=== PATIENT | male | born 1940 | race Caucasian/White ===

== ENCOUNTER 2016-08-28 13:24 | Outpatient (RCR) | payer MEDICARE, OTHER ==
[~2016-08-28 13:24] MED LIST: AMARYL 2MG T2 MG/TAB PO; AMOXICILLIN 8751 TAB PO; ANTIVERT 25MG25 MG PO; ASPIRIN 32325 MG/TAB PO; ASPIRIN 81M81 MG/TA2 PO; ATIVAN 0.50.5 MG/TAB PO; BRILINTA90 MG PO; DOXAZOSIN4 MG PO; GLUCOPHAGE XR500 M1 PO; HCTZ 25MG TAB25 MG PO; INDERAL LA120 MG PO; KLOR-CON20 MEQ PO; LASIX 20MG TABL20 MG PO; LIPITOR 40MG TA40 MG PO; LISINOPRIL10 MG PO; MECLIZINE25 MG PO; MYSOLINE 5050 MG/TAB PO; NEXIUM 40MG40 MG PO; PROTONIX 40MG T40 MG PO; ZESTRIL 20MG TA20 MG PO; ZITHROMAX Z PA250 MG PO; ZOCOR 20MG20 MG PO; ZOFRAN4 MG PO
== END 2016-08-30 | disposition home or self-care (01) ==
LOC: COL.CR
DX: Z48.812 Encounter for surgical aftercare following surgery on the circulatory system (principal); Z95.5 Presence of coronary angioplasty implant and graft; I25.10 Atherosclerotic heart disease of native coronary artery without angina pectoris

== ENCOUNTER → 2016-09-09 | Outpatient (CLI) | payer MEDICARE, OTHER | LOC: COL.RAD 07:28 | DX: Z87.891 Personal history of nicotine dependence (principal); I71.4 Abdominal aortic aneurysm, without rupture ==

== ENCOUNTER 2017-05-18 02:38 | Emergency (ER) | payer MEDICARE, OTHER ==
[~2017-05-18] VITALS: Ht 182.9 cm; Wt 102.3 kg
[2017-05-18 02:44] VITALS: BP 187/101; PULSE 84; TEMP 97.6
[2017-05-18 03:10] LABS: BASO % 0.4 % (0.0-2.0); EOS # 0.3 (0.0-0.7); EOS % 2.8 % (0-4.0); GRAN # 6.8 (1.4-6.5); GRAN % 75.2 % (42.2-75.2); HEMATOCRIT 38.3 % (42.0-52.0); HEMOGLOBIN 12.5 g/dl (13.5-18.0); LYMPH # 1.1 (1.2-3.4); MEAN CELL VOLUME 87 fl (80.0-100.0); MEAN CORPUSCULAR HEMOGLOBIN 29 pg (27.0-31.0); MEAN CORPUSCULAR HGB CONC 33 g/dl (33.0-37.0); MEAN PLATELET VOLUME 10.3 fl (7.4-10.4); MONO # 0.8 (0.1-0.6); PLATELET COUNT 181 K/mm3 (130-400); RED BLOOD COUNT 4.39 M/mm3 (4.20-5.60)
[2017-05-18 03:20] LABS: ADJUSTED CALCIUM 9.4 mg/dL (8.4-10.2); ALBUMIN 3.9 gm/dL (3.5-5.0); BILIRUBIN,TOTAL 0.7 mg/dL (0.0-1.0); CALCIUM 9.3 mg/dL (8.4-10.2); CREATININE, serum 1.13 mg/dL (0.66-1.25); POTASSIUM 3.8 mmol/L (3.4-5.0); TOTAL PROTEIN 6.9 gm/dL (6.4-8.2)
[2017-05-18 03:21] LABS: COLLECTION METHOD CLEAN CATCH
[2017-05-18 03:29] LABS: MUCOUS Present /lpf; PH 5 (5-8); SQUAMOUS EPITHELIAL 0-2 /hpf; URINE APPEARANCE Hazy; URINE BACTERIA None Seen /hpf; URINE BILIRUBIN Negative (NEGATIVE); URINE BLOOD 3+ (NEGATIVE); URINE COLOR Yellow; URINE GLUCOSE 2+ (NEGATIVE); URINE KETONE Negative (NEGATIVE); URINE LEUKOCYTE ESTERASE Negative (NEGATIVE); URINE PROTEIN(semi-quant) 1+ (NEGATIVE); URINE RBC >50 /hpf; URINE UROBILINOGEN Negative (NEGATIVE)
[2017-05-18] MEDS ORDERED: NORCO 325 MG-51 TAB PO (03:37)
[2017-05-18] MEDS ORDERED: ZOFRAN ODT4 MG PO (03:37)
[2017-05-18] MEDS ORDERED: FLOMAX 0.40.4 MG/CAP PO (03:37)
[2017-05-20] MEDS ORDERED: CEPHALEXIN500 M1 PO (05:42)
== END 2017-05-18 04:30 | disposition home or self-care (01) ==
LOC: COL.ER 02:38
PROVIDERS: Emergency Medicine
DX: N20.1 Calculus of ureter (principal); I25.10 Atherosclerotic heart disease of native coronary artery without angina pectoris; E11.9 Type 2 diabetes mellitus without complications; I10 Essential (primary) hypertension; K21.9 Gastro-esophageal reflux disease without esophagitis; E78.5 Hyperlipidemia, unspecified; K27.9 Peptic ulcer, site unspecified, unspecified as acute or chronic, without hemorrhage or perforation; F17.220 Nicotine dependence, chewing tobacco, uncomplicated; Z87.442 Personal history of urinary calculi; Z95.5 Presence of coronary angioplasty implant and graft; Z90.49 Acquired absence of other specified parts of digestive tract; Z79.82 Long term (current) use of aspirin; Z79.84 Long term (current) use of oral hypoglycemic drugs
CPT/HCPCS: J1885; J2765; J3010; J7030

== ENCOUNTER 2018-05-11 07:14 | Observation (INO) | payer MEDICARE, OTHER ==
[2018-05-11] VITALS (10 sets, daily range): BP systolic 89–133; BP diastolic 43–73; PULSE 68–91; TEMP 97.8–98.4
[~2018-05-11] VITALS: Ht 182.9 cm; Wt 104.9 kg
[~2018-05-11 07:14] MED LIST changes: +CEPHALEXIN500 M1 PO; +FLOMAX 0.40.4 MG/CAP PO; +NORCO 325 MG-51 TAB PO; +ZOFRAN ODT4 MG PO
[2018-05-11 07:33] LABS: BASO % 0.6 % (0.0-2.0); EOS # 0.3 (0.0-0.7); EOS % 4.1 % (0-4.0); GRAN # 4.6 (1.4-6.5); GRAN % 72.3 % (42.2-75.2); HEMOGLOBIN 12.4 g/dl (13.5-18.0); LYMPH # 0.9 (1.2-3.4); LYMPH % 14.1 % (20.0-51.0); MEAN CELL VOLUME 86 fl (80.0-100.0); MEAN CORPUSCULAR HEMOGLOBIN 28 pg (27.0-31.0); MEAN CORPUSCULAR HGB CONC 33 g/dl (33.0-37.0); MEAN PLATELET VOLUME 10.3 fl (7.4-10.4); MONO # 0.5 (0.1-0.6); MONO % 8.4 % (1.7-9.3); PLATELET COUNT 206 K/mm3 (130-400); RED BLOOD COUNT 4.43 M/mm3 (4.20-5.60); REDCELL DISTRIBUTION WIDTH-CV 12.7 % (11.5-14.5)
[2018-05-11 07:40] LABS: PROTHROMBIN TIME 11.6 SECONDS (9.7-12.8)
[2018-05-11 07:45] LABS: ALANINE AMINOTRANSFERASE 30 U/L (21-72); ALBUMIN 3.7 gm/dL (3.5-5.0); ALKALINE PHOSPHATASE 78 U/L (50-136); ANION GAP 7 mmol/L (7-16); AST,SGOT 18 U/L (15-37); BILIRUBIN,TOTAL 0.4 mg/dL (0.0-1.0); BLOOD UREA NITROGEN 14 mg/dL (9-20); CALCIUM 8.8 mg/dL (8.4-10.2); CARBON DIOXIDE 31 mmol/L (22-30); CHLORIDE 102 mmol/L (98-107); CREATININE, serum 0.84 mg/dL (0.66-1.25); GLUCOSE 209 mg/dL (74-106); POTASSIUM 4.1 mmol/L (3.4-5.0); SODIUM 140 mmol/L (137-145); TOTAL PROTEIN 6.7 gm/dL (6.4-8.2)
[2018-05-11 07:59] LABS: TROPONIN-I < 0.012 ng/mL (0.000-0.034)
[2018-05-11] MEDS ORDERED: SINEMET 10/101 UDTAB PO (08:06)
[2018-05-11] MEDS ORDERED: PLAVIX 75MG TAB75 MG PO (08:07)
[2018-05-11] MEDS ORDERED: LAMISIL250 M1 (08:07)
[2018-05-11 11:27] LABS: TSH w REFLEX 1.33 uIU/mL (0.465-4.680)
[2018-05-12 00:31] VITALS: BP 139/76; PULSE 72; TEMP 98
[2018-05-12 03:59] VITALS: BP 139/78; PULSE 73; TEMP 97.5
[2018-05-12 06:29] LABS: CHOLESTEROL 121 mg/dL (120-200); HDL CHOLESTEROL 20 mg/dL; LDL CHOLESTEROL 36 mg/dL; TRIGLYCERIDE 327 mg/dL
[2018-05-12 06:35] LABS: TROPONIN-I < 0.012 ng/mL (0.000-0.034)
[2018-05-12 09:25] VITALS: BP 162/87; PULSE 92; TEMP 98.6
== END 2018-05-12 12:57 | disposition home or self-care (01) ==
LOC: COL.ER 07:14 → MEDICAL 08:10
PROVIDERS: Family Medicine; Physician Assistant
DX: R07.9 Chest pain, unspecified (principal); R55 Syncope and collapse; D64.9 Anemia, unspecified; N40.0 Benign prostatic hyperplasia without lower urinary tract symptoms; I10 Essential (primary) hypertension; E78.5 Hyperlipidemia, unspecified; K21.9 Gastro-esophageal reflux disease without esophagitis; G20 Parkinson's disease; I25.10 Atherosclerotic heart disease of native coronary artery without angina pectoris; I34.0 Nonrheumatic mitral (valve) insufficiency; Z79.82 Long term (current) use of aspirin; Z79.02 Long term (current) use of antithrombotics/antiplatelets; Z95.5 Presence of coronary angioplasty implant and graft; Z79.84 Long term (current) use of oral hypoglycemic drugs; Z86.73 Personal history of transient ischemic attack (TIA), and cerebral infarction without residual deficits; Z87.891 Personal history of nicotine dependence; Z82.49 Family history of ischemic heart disease and other diseases of the circulatory system
CPT/HCPCS: 99222-AI; 99232-AI; A9502; G0378; J1650; J1815; J2785; J7030

== ENCOUNTER 2019-05-02 12:56 | Inpatient (IN) | payer MEDICARE, OTHER ==
[2019-05-02] VITALS (176 sets, daily range): BP systolic 159–194; BP diastolic 86–89; PULSE 71–77; TEMP 98.5–99.1; O2SAT 84–98
[~2019-05-02] VITALS: Ht 182.9 cm; Wt 97.0 kg
[~2019-05-02 12:56] MED LIST changes: +LAMISIL250 M1; -LIPITOR 40MG TA40 MG PO; +LIPITOR20 MG PO; +NEXIUM 20MG20 MG PO; -NEXIUM 40MG40 MG PO; +PLAVIX 75MG TAB75 MG PO; +SINEMET 10/101 UDTAB PO
[2019-05-02] MEDS ORDERED: JANUVIA 100MG100 MG PO (13:13)
[2019-05-02] MEDS ORDERED: NITROSTAT0.4 MG/TAB SL (13:15)
[2019-05-02] MEDS ORDERED: TOPROL XL100 MG PO (13:17)
[2019-05-02 13:25] LABS: PROTHROMBIN TIME 11.8 SECONDS (9.7-12.8)
[2019-05-02 13:27] LABS: BASO % 0.7 % (0.0-2.0); EOS # 0.3 (0.0-0.7); EOS % 4.7 % (0-4.0); GRAN # 3.5 (1.4-6.5); GRAN % 62.5 % (42.2-75.2); HEMATOCRIT 40.6 % (42.0-52.0); HEMOGLOBIN 13.2 g/dl (13.5-18.0); LYMPH # 1.2 (1.2-3.4); LYMPH % 20.6 % (20.0-51.0); MEAN CELL VOLUME 88 fl (80.0-100.0); MEAN CORPUSCULAR HEMOGLOBIN 29 pg (27.0-31.0); MEAN CORPUSCULAR HGB CONC 33 g/dl (33.0-37.0); MEAN PLATELET VOLUME 10.8 fl (7.4-10.4); MONO # 0.6 (0.1-0.6); MONO % 11.1 % (1.7-9.3); PLATELET COUNT 163 K/mm3 (130-400); REDCELL DISTRIBUTION WIDTH-CV 13.4 % (11.5-14.5)
[2019-05-02 13:28] LABS: ALBUMIN 4.1 gm/dL (3.5-5.0); BILIRUBIN,TOTAL 0.4 mg/dL (0.0-1.0); CALCIUM 9.1 mg/dL (8.4-10.2); CREATININE, serum 0.95 (0.66-1.25); POTASSIUM 4.1 mmol/L (3.4-5.0)
[2019-05-02] MEDS ORDERED: GLUCOPHAGE500 MG/TAB PO (13:30)
--- NOTE | 2019-05-02 18:35 | NUR ---
PT ADMITTED FROM ED WITH CVA. PT TRANSFERED TO BED. ICU MONITORING APPLIED. PT SHOWING SR ON TELE. PT ORIENTED TIMES. BEDSIDE SWALLOW PASSED. PT AND ORIENTED TO ROOM. PT INSTRUCTED TO CALL WTIH ALL NEEDS. WILL CONTINUE TO MONITOR.
--- NOTE | 2019-05-02 20:00 | NUR ---
PT assessed and POC, baseline discussed with . PT occasionally answers questions related to assessment but looked to for answers when discussing Admission B, patient is occasionally salome and refuses to smile for assessment, stated "Don't you guys ever take a break from this night?" Informed patient that the stroke assessment is necessary to do to check that his symptoms do not worsen.
[2019-05-03] VITALS (716 sets, daily range): BP systolic 141–164; BP diastolic 57–99; PULSE 69–90; TEMP 97.8–98.8; O2SAT 75–100
[2019-05-03 05:32] LABS: BASO % 0.8 % (0.0-2.0); EOS # 0.2 (0.0-0.7); EOS % 3.8 % (0-4.0); GRAN # 3.7 (1.4-6.5); GRAN % 68.9 % (42.2-75.2); HEMATOCRIT 34.2 % (42.0-52.0); HEMOGLOBIN 11.1 g/dl (13.5-18.0); LYMPH # 0.8 (1.2-3.4); LYMPH % 15.6 % (20.0-51.0); MEAN CELL VOLUME 88 fl (80.0-100.0); MEAN CORPUSCULAR HEMOGLOBIN 28 pg (27.0-31.0); MEAN CORPUSCULAR HGB CONC 33 g/dl (33.0-37.0); MEAN PLATELET VOLUME 10.6 fl (7.4-10.4); MONO # 0.6 (0.1-0.6); MONO % 10.5 % (1.7-9.3); PLATELET COUNT 142 K/mm3 (130-400); RED BLOOD COUNT 3.91 M/mm3 (4.20-5.60); REDCELL DISTRIBUTION WIDTH-CV 13.5 % (11.5-14.5)
[2019-05-03 05:37] LABS: CALCIUM 8.1 mg/dL (8.4-10.2); CHOLESTEROL RISK RATIO 4.6; CREATININE, serum 0.84 (0.66-1.25); POTASSIUM 3.6 mmol/L (3.4-5.0)
--- NOTE | 2019-05-03 07:10 | NUR ---
Bedside report received on this patient. He is awake and alert and oriented. BP elevated in 170s, he has no complaints. Other VS WNL. Will continue to monitor.
--- NOTE | 2019-05-03 07:30 | NUR ---
Bedside report given to CRISTY Bartlett.
--- NOTE | 2019-05-03 07:45 | NUR ---
Adams Cath placed on this patient. He tolerates well.
--- NOTE | 2019-05-03 08:30 | NUR ---
Patient was eating scrambled eggs for breakfast this AM. He started coughing, choking, and became red in the face. Patient was assisted in clearing his mouth from the scrambled eggs, of which there was a lot. Patient was suctioned with oral yaunker at high suction. Patient heart rate reached up to the 140s during choking episode. He came back down to HR of 80s-90s after he recovers. Dr. Romero called with update at this time. Orders received for Chest XR, ST eval, and NPO. Will continue to monitor
--- NOTE | 2019-05-03 11:00 | NUR ---
LIBERTY EXTERNAL CATHETER ATTEMPTED AND DID NOT STAY ON THE PATIENT'S MEATUS. ATTEMPTED MULTIPLE TIMES AND IT DID NOT STAY IN PLACE. PENIS INCONTINENCE WRAP PLACED AND WORKING BETTER.
--- NOTE | 2019-05-03 14:39 | NUR ---
LAQUITA zurita met with the patient to discuss a discharge plan. The patient lives in [place] with is , Carrie . The patient has a cane, walker, electric wheelchair, and regular wheelchair. The patient reports independence with ADLs. The patient's PCP is Dr. Barrett but will being to see Dr. Barrett's replacement once he retires. The patient receives medications from [facility] with no difficulties. The patient does not have advanced directives in the EMR but reports they are completed. Physical therapy is recommending post acute rehab for the patient. LAQUITA zurita presented Medicare.gov's list of [facility] and Nursing homes. The patient reports he does not care where he goes. Patient would like LAQUITA zurita to contact Carrie to assist with the decision. LAQUITA student attempted to contact Carrie and could not leave voicemail. OIL GAUGERHallie zurita will contact at a later time. printing services coordinator will continue to follow.
--- NOTE | 2019-05-03 17:00 | NUR ---
Patient is currently sitting up in recliner. I notice that he is removing all monitor cords. He is reminded that he needs to keep the CRM in place. He states, "It's 5 o'clock! I gotta get home! My is cooking supper!" I remind the patient of the plan of care and what brought him to the hospital. He verbalizes that he understands then says "Well the right hand and the left hand don't know whats going on!" "I'm in rehab! When are we going to get the show on the road?" I explain to him that he is in the ICU and will go to rehab when the doctor is ready for him to be finished with his hospital stay.
--- NOTE | 2019-05-03 17:30 | NUR ---
, Carrie is here. She is updated on recent confusion that patient has shown me. She states that he has early dementia and can get somewhat aggressive at times. She is updated on plan of care.
--- NOTE | 2019-05-03 18:00 | NUR ---
Patient goes to MRI at this time.
[2019-05-04] VITALS (261 sets, daily range): BP systolic 120–170; BP diastolic 70–90; PULSE 66–74; TEMP 98–98.8; O2SAT 89–100
[2019-05-04 06:06] LABS: BASO % 0.6 % (0.0-2.0); EOS # 0.2 (0.0-0.7); EOS % 4.8 % (0-4.0); GRAN # 3.3 (1.4-6.5); GRAN % 65.9 % (42.2-75.2); HEMOGLOBIN 11.3 g/dl (13.5-18.0); LYMPH # 0.9 (1.2-3.4); LYMPH % 17.9 % (20.0-51.0); MEAN CELL VOLUME 88 fl (80.0-100.0); MEAN CORPUSCULAR HEMOGLOBIN 28 pg (27.0-31.0); MEAN CORPUSCULAR HGB CONC 32 g/dl (33.0-37.0); MEAN PLATELET VOLUME 10.8 fl (7.4-10.4); MONO # 0.5 (0.1-0.6); MONO % 10.4 % (1.7-9.3); PLATELET COUNT 149 K/mm3 (130-400); RED BLOOD COUNT 4.02 M/mm3 (4.20-5.60); REDCELL DISTRIBUTION WIDTH-CV 13.2 % (11.5-14.5)
[2019-05-04 06:12] LABS: CALCIUM 8.5 mg/dL (8.4-10.2); CREATININE, serum 0.81 (0.66-1.25)
[2019-05-04 06:19] LABS: HEMATOCRIT 35.3 % (42.0-52.0)
--- NOTE | 2019-05-04 07:00 | NUR ---
Patient was restless throughout the night, constantly moving from side to side in bed, removing tele patches, and unhooking BP cuff. PT was oriented throughout the night and showed no new stroke defecits. Had about 9-10 incontinent voids requiring brief and linen changes, does not verbalize when he has went or needs to go. Bedside report given to CRISTY Andrews.
--- NOTE | 2019-05-04 07:34 | NUR ---
REPORT RECEIVED FROM ANTONY MUNIZ.
--- NOTE | 2019-05-04 08:12 | NUR ---
PT'S IV TO RIGHT HAND BEGAN LEAKING. IV HAS BECOME DISLODGED AT SOME POINT IN THE LAST FEW MINUTES. IV TO RIGHT HAND REMOVED.
--- NOTE | 2019-05-04 09:00 | NUR ---
22G PERIPHERAL IV INITIATED TO LEFT FOREARM.
--- NOTE | 2019-05-04 09:31 | NUR ---
LAQUITA zurita met with the patient and the patient's to discuss post acute rehab options and present the patient choice form. LAQUITA zurita provided Medicare.gov's list of inpatient rehab and usp facilities. The patient and the patient's first choice is [facility] and second choice is [facility]. The patient's signed the patient choice form then it was placed in the chart. LAQUITA zurita left message for RAJAN Maravilla Director and faxed referral to Xavi at [facility]. financial services counselor will continue to follow.
--- NOTE | 2019-05-04 13:00 | NUR ---
WHILE SITTING AT THE COMPUTER IN THE [place] CHARTING WE HEARD A NOISE FROM PATIENT'S ROOM. UPON ENTERING ROOM PATIENT WAS AT THE FOOT OF HIS BED CROUCHED DOWN, HOLDING ON TO HIS BED TRYING NOT TO FALL. PATIENT HAD SET UP FROM THE RECLINER AND PUSHED IN THE FOOT LIFT, UNHOOKED HIMSELF FROM TELE, AND WAS ATTEMPTING TO WALK TO OTHER SIDE OF THE ROOM. MYSELF AND 3 OTHER NURSE'S RAN INTO ROOM UPON SEEING PATIENT HOLDING HIMSELF UP AND ASSISTED HIM BACK INTO RECLINER CHAIR. PATIENT THEN HELPED BACK INTO BED WHERE BED ALARM WAS TURNED ON. PATIENT HAS BEEN EDUCATED REGARDING SAFETY AND CALL LIGHT. I HAVE CHECKED ON PATIENT SEVERAL TIMES TO ENSURE HE DID NOT HAVE ANY NEEDS. PATIENT HAD REASSURED ME HE WAS FINE AND HE DIDN'T NEED ANYTHING. WHEN I ASKED PATIENT WHY HE HAD GOTTEN UP HE SAID HE JUST WANTED TO GO ON THE OTHER SIDE OF THE ROOM. I REEXPLAINED TO PATIENT THAT HE IS NOT TO GET UP ALONE BECAUSE HE NEARLY FELL AND GOT HURT.
--- NOTE | 2019-05-04 13:44 | NUR ---
REPORT CALLED TO ABDIEL MUNIZ
--- NOTE | 2019-05-04 14:40 | NUR ---
PT TRANSFERRED VIA WHEELCHAIR TO ROOM 311. PHYSICAL THERAPY READY TO WORK WITH PATIENT UPON ENTERING THE ROOM. PATIENT AMBULATED WITH WALKER, GAIT BELT, AND PT TO BED. CONTACT MADE WITH ABDIEL UPON TRANSFER AND LET HER KNOW PT WAS WORKING WITH THE PATIENT. PT'S BELONGINGS TRANSFERRED WITH PATIENT.
--- NOTE | 2019-05-04 14:41 | NUR ---
Xavi from [facility] reports they can accept pending any major changes. services account manager will continue to monitor.
--- NOTE | 2019-05-04 15:00 | NUR ---
Pt to medical unit rm 311 from ICU via WC accompanied by RN. Pt transferred from WC to bed with assist from PT. No needs reported. Call light in reach. Bed alarm on.
--- NOTE | 2019-05-04 18:52 | NUR ---
Report with CRISTY Montoya. Pt resting in bed, ready to get up to bathroom and awaiting supper. No further needs reported. Call light in reach.
--- NOTE | 2019-05-04 21:00 | NUR ---
Patient assessed at this time. Alert and oriented x 4, with intermittent confusion. High fall risk precautions in place. Denies having pain and discomfort. Peripheral IV flushed. Site without redness, warmth, swelling, and pain. Denies SOB and dyspnea. LS CTA. Respirations even and unlabored. HRR. Telemetry in place: NS. Capillary refill less than 3 seconds. Non-tenting skin turgor. BSAx4. Abdomen soft and non-tender. No edema. Redness to groin area. Left sided weakness continues. Two assist due to being unsteady. Voices no questions, needs, or concerns at this time. Resting in bed with call light within reach.
[2019-05-05 00:08] VITALS: BP 159/85; PULSE 75
[2019-05-05 03:55] VITALS: BP 128/78; PULSE 70
--- NOTE | 2019-05-05 05:51 | NUR ---
Patient has been resting in bed with eyes closed most of the night. Neuro checks remain WNL for patient. Call light is within reach.
[2019-05-05 06:42] LABS: BASO % 0.4 % (0.0-2.0); EOS # 0.3 (0.0-0.7); EOS % 5.5 % (0-4.0); GRAN % 66.9 % (42.2-75.2); HEMOGLOBIN 11.5 g/dl (13.5-18.0); LYMPH # 0.7 (1.2-3.4); LYMPH % 14.9 % (20.0-51.0); MEAN CELL VOLUME 87 fl (80.0-100.0); MEAN CORPUSCULAR HEMOGLOBIN 28 pg (27.0-31.0); MEAN CORPUSCULAR HGB CONC 32 g/dl (33.0-37.0); MEAN PLATELET VOLUME 10.7 fl (7.4-10.4); MONO # 0.5 (0.1-0.6); MONO % 11.9 % (1.7-9.3); PLATELET COUNT 147 K/mm3 (130-400); RED BLOOD COUNT 4.08 M/mm3 (4.20-5.60); REDCELL DISTRIBUTION WIDTH-CV 13.3 % (11.5-14.5)
[2019-05-05 06:44] LABS: HEMATOCRIT 35.5 % (42.0-52.0)
--- NOTE | 2019-05-05 07:00 | NUR ---
Bedside shift report received from CRISTY Montoya. pT in bed resting with eyes closed, upon entry awakens and asked to go back to sleep, will leave resting and continue to monitor.
[2019-05-05 07:07] LABS: CALCIUM 8.5 mg/dL (8.4-10.2); CREATININE, serum 0.82 (0.66-1.25); POTASSIUM 3.7 mmol/L (3.4-5.0)
[2019-05-05 07:44] VITALS: BP 166/79; PULSE 65; TEMP 98.3
[2019-05-05] MEDS ORDERED: LIPITOR 40MG TA40 MG PO (09:16)
--- NOTE | 2019-05-05 10:52 | NUR ---
Asssesment charted, pt refuses to smile for neurochecks but all other checks are equal. Pt does not know date but able to tell me month and year, and oriented to place and . Abrasion to L knee and groin is excoriated. Anticipating discharge to [facility] shortly. Melo lcontinue to monitor.
--- NOTE | 2019-05-05 11:32 | NUR ---
Report called to IPR nurse CRISTY Uribe. Pt walking with PT. Belongings sent to new room on IPR with IPR staff. Denies needs, packet given to IPR. INT dc'd, tip intact. Criteria met
--- NOTE | 2019-05-05 13:19 | NUR ---
Despatching And Receiving Clerk was notified by [facility] Director, Renita that they can accept patient today. SW contacted [place] at [facility] to provide update. SW attended rounds with the team and patient to discharge to [facility] today. SW contacted patient's , Carrie (ph#[phone]) to provide update and request that she bring in clothes for patient. No additional concerns at this time.
== END 2019-05-05 11:36 | DRG 62 ==
LOC: COL.ER 12:56 → ICU 16:54 → MEDICAL 05-04 14:51
PROVIDERS: Family Medicine; Physician Assistant; ADMIT Hospitalist
DX: I63.9 Cerebral infarction, unspecified (principal); G81.94 Hemiplegia, unspecified affecting left nondominant side; R47.1 Dysarthria and anarthria; R29.810 Facial weakness; I65.23 Occlusion and stenosis of bilateral carotid arteries; I25.10 Atherosclerotic heart disease of native coronary artery without angina pectoris; I10 Essential (primary) hypertension; E78.5 Hyperlipidemia, unspecified; N40.0 Benign prostatic hyperplasia without lower urinary tract symptoms; E11.9 Type 2 diabetes mellitus without complications; K21.9 Gastro-esophageal reflux disease without esophagitis; R29.705 NIHSS score 5; Z66 Do not resuscitate; F17.200 Nicotine dependence, unspecified, uncomplicated; G20 Parkinson's disease; Z95.5 Presence of coronary angioplasty implant and graft; Z98.42 Cataract extraction status, left eye; Z98.41 Cataract extraction status, right eye; Z87.442 Personal history of urinary calculi; Z86.73 Personal history of transient ischemic attack (TIA), and cerebral infarction without residual deficits; Z90.49 Acquired absence of other specified parts of digestive tract; Z79.02 Long term (current) use of antithrombotics/antiplatelets; Z79.84 Long term (current) use of oral hypoglycemic drugs
CPT/HCPCS: 99223-AI; 99231-AI; 99232-AI; 99239; A9585; J2997; J7030; Q9967

== ENCOUNTER 2019-05-05 09:52 | Inpatient (IN) | payer MEDICARE, OTHER ==
[~2019-05-05] VITALS: Ht 180.3 cm; Wt 95.4 kg
[~2019-05-05 09:52] MED LIST changes: +GLUCOPHAGE500 MG/TAB PO; +JANUVIA 100MG100 MG PO; +LIPITOR 40MG TA40 MG PO; +NITROSTAT0.4 MG/TAB SL; +TOPROL XL100 MG PO
--- NOTE | 2019-05-05 11:30 | NUR ---
Received report from Joyce/RN at [facility] Medical unit. Patient was admitted to Medical unit on 05/02 and was found to have a stroke. He was given TPA was in ICU for a time. He has NKDA, takes pills whole with water. He is alert and oriented, but forgetful. He is a 1-2 person transfer with walker. He is incontinent of urine and bowel. His groin is very excoriated and red. VSS. Joyce removed IV to [facility]. He is on a Carb Controlled/AHA diet. When in the ICU had an episode of chocking when eating some food so ST will be following him when he gets to [facility]. He is impulsive and high fall risk so was placed in room #337 to be better monitored by nursing staff.
[2019-05-05 15:31] VITALS: BP 132/74; PULSE 72; TEMP 98.6
--- NOTE | 2019-05-05 16:00 | NUR ---
Patient was assessed and documents signed. needed to answer many questions as patient did not remember. Discussed using an external catheter to help with skin break down in groin area. Patient and were in agreement will try to do this following his supper this evening. He is currently resting comfortably in his recliner, call light in reach, slip proof socks on and chair alarm on. Will continue to monitor.
[2019-05-05 18:10] VITALS: BP 132/78; PULSE 69; TEMP 97.7
--- NOTE | 2019-05-05 21:08 | NUR ---
When doing patient assessment this nurse found out patient uses scoal daily and has been for about 50 years. Patient would be interested in getting a nicotine patch. Order was filled out. Will have day nurse call and get orders for this patch tomorrow. This was communicated to night nurse.
[2019-05-05 21:49] VITALS: BP 132/78; PULSE 69; TEMP 97.7
[2019-05-06 04:28] VITALS: BP 142/65; PULSE 63; TEMP 97.9
--- NOTE | 2019-05-06 12:45 | NUR ---
stopped by room but nothing needed at this time.
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
[2019-05-06 17:25] VITALS: BP 121/52; PULSE 69; TEMP 98.5
--- NOTE | 2019-05-06 21:41 | NUR ---
Pt doing ok. Was laying in bed this evening. Alert and mostly oriented. Mild confusion noted. Nurse aide did change patient as he was incontinent of bladder. Denies pain. Took PM meds with no issues. Denies needs at this time. Call light within reach, will continue to monitor
[2019-05-07 05:39] VITALS: BP 149/78; PULSE 69; TEMP 97.9
--- NOTE | 2019-05-07 12:50 | NUR ---
RECIEVED ORDER FROM DR SERRANO FOR SCD'D FOR PT'S VTE, THESE WERE PLACED AND EDUCATION GIVEN TO PT.
[2019-05-07 16:56] VITALS: BP 139/73; PULSE 87; TEMP 98.8
--- NOTE | 2019-05-07 18:05 | NUR ---
PT HAS SPENT MOST OF THE DAY IN BED. HE HAS BEEN VERY CONVERSANT WITH STAFF. HE HAD A INCONTINENT STOOL THIS AFTERNOON AND MANAGED TO GET THE STOOL ONLY ON THE BED PAD. THIS SEEMED TO UNEXPECTED IT WAS A LOOSE STOOL. PT HAS CALLED TWICE TO USE THE BR DURING THE DAY. HE GETS UP OUT OF BED WITH ONE ATTEMPT AND USES HIS WALKER WELL. HE DOES LEAN TO THE LEFT AND NEEDS CUEING TO STAND STRAIGHT TO AMBULAE. AT TIMES HE IS UNABLE TO STAND UP STRAIGHT WITH OUT LEANING AND AT OTHER TIMES HE DOES WELL.
--- NOTE | 2019-05-07 20:00 | NUR ---
PT RESTING IN BED. ENC PT TO GO FOR WALK IN [place]. REFUSED. WANTS TO GO TO SLEEP. WEARING BRIEFS FOR BLADDER INCONTINENCE. DENEIS PAIN. HUB ASSOCIATE STRONG BILAT. ORIENTED BUT VERY FORGETFUL. TRMORS NOTED TO BOTH HANDS. CALL LIGHT IN REACH. BED ALARM SET.
[2019-05-08 05:36] VITALS: BP 146/66; PULSE 66; TEMP 97.9
[2019-05-08 09:15] VITALS: BP 184/98; PULSE 79; TEMP 97.7
--- NOTE | 2019-05-08 09:30 | NUR ---
Pt fell while amb to BR with EL Cisneros, this nurse entered room upon hearing the sound from him falling, pt was sitting on the floor with his knees bent to his left side, yellow gripper socks were in place, gait belt and walker were in use, glasses in place. Pt denies pain or injury. Amelia Dasilva, and Richi assisted pt to wheelchair and vitals were taken. Pt's arms trembling. Informed Amelia that she will need to complete an incident report up to my arrival. Oscar FunesRoof Cement And Paint Maker was notified at 0918. Informed GALINA Griffin as well that pt's knees just give out, per GEMA Dasilva.
--- NOTE | 2019-05-08 10:06 | NUR ---
Pt returned from PT, was assisted to the BSC without results, donned new chelsey pad/cone and pulled up brief. Pt assisted to chair, alarm on, call lt in reach. Shoes and glasses in place. Pt denies pain after falling.
[2019-05-08 10:09] VITALS: BP 143/71; PULSE 76
--- NOTE | 2019-05-08 11:08 | NUR ---
Asked Reta, Speech Therapist, and she reports that pt needed to toilet during her session in room with pt, she stepped out of room and pt fell while EL Cisneros was ambulating pt to restroom.
--- NOTE | 2019-05-08 11:43 | NUR ---
SW met with the patient to complete initial intake, as the patient is new to [facility]. The patient lives in [place] with his , Carrie (ph#[phone]). He reports independence with ADLs prior to hospitalization and has a cane, walker, wheelchair, and electric wheelchair. The patient's PCP is Dr. Susanne Rm and he receives his medications at [facility]. He reports no difficulties obtaining his meds. The patient does not have advanced directives in EMR, but he states that he does have them completed. He states that his is his DPOA-HC. SW to continue to follow to ensure a safe discharge.
--- NOTE | 2019-05-08 13:47 | NUR ---
Attempted to give pt lovenox, he refused to receive in abdomen, called pharmacy and Mireya states it may be given in the back of the arm, not in the muscle.
[2019-05-08 15:52] VITALS: BP 113/63; PULSE 91; TEMP 98.8
--- NOTE | 2019-05-08 17:40 | NUR ---
Pt in chair, alarm on, call lt in reach, shoes and glasses in place. Denies pain.
--- NOTE | 2019-05-08 19:55 | NUR ---
Patient resting in bed during shift change reported from day shift nurse. Bed alarm on. No other needs reported.
--- NOTE | 2019-05-08 21:23 | NUR ---
Reported to Dr. Salazar that pt is confused, weak, has incontinence of stools, incontinent of urine frequently, difficult to know what pt's baseline is. Impulsive with fall today, Dr. Salazar aware.
--- NOTE | 2019-05-09 02:03 | NUR ---
Resting quietly in bed, eyes closed, does not arouse when room entered. Bed alarm on.
[2019-05-09 05:22] VITALS: BP 157/75; PULSE 70; TEMP 98.1
[2019-05-09 05:40] LABS: COLLECTION METHOD CATHETER
[2019-05-09 05:50] LABS: MUCOUS Present /lpf; PH 5 (5-8); SQUAMOUS EPITHELIAL 0-2 /hpf; URINE APPEARANCE Hazy; URINE BACTERIA None Seen /hpf; URINE BILIRUBIN Negative (NEGATIVE); URINE BLOOD Negative (NEGATIVE); URINE COLOR Yellow; URINE GLUCOSE Negative (NEGATIVE); URINE KETONE Trace (NEGATIVE); URINE LEUKOCYTE ESTERASE Negative (NEGATIVE); URINE NITRATE Negative (NEGATIVE); URINE PROTEIN(semi-quant) Negative (NEGATIVE); URINE UROBILINOGEN Negative (NEGATIVE)
--- NOTE | 2019-05-09 06:18 | NUR ---
UA COLLECTED PER ST CATH PER DR ORDER, CURRENTLY RESTING QUIETLY WITH EYES CLOSED, DOES NOT AWAKEN WHEN ROOM ENTERED AT THIS TIME. BED ALARM ENGAGED.
--- NOTE | 2019-05-09 07:50 | NUR ---
RESTING IN BED DURING SHIFT CHANGE REPORT GIVEN TO DAY SHIFT NURSE, BED ALARM ENGAGED.
--- NOTE | 2019-05-09 08:38 | NUR ---
Patient resting in bed at this time working with ST. Call light in reach and bed alarm is on. Denies pain or questions at this time.
--- NOTE | 2019-05-09 10:30 | NUR ---
Patient resting in bed at this time, call light in reach and is sleeping at this time. Patient is positioned close to nurse station and alarm is set. He denies pain at this time.
--- NOTE | 2019-05-09 14:41 | NUR ---
WILL contacted the patient's , Carrie, to set up a family meeting. A family meeting was scheduled for tomorrow at [id number]. WILL informed the IPR Director and will continue to follow.
[2019-05-09 15:37] VITALS: BP 123/61; PULSE 87; TEMP 98.1
--- NOTE | 2019-05-09 16:28 | NUR ---
Admission QIM scores were reviewed by the team. Code of 1 chosen for toilet hygiene was determined by team discussion to be the most usual performance before interventions for this patient during the assessment period.--PD Cierra
--- NOTE | 2019-05-09 19:20 | NUR ---
PATIENT PUT TO BED, INCONTINENT PANTS CHANGED, INCONTINENT OF URINE, PERICARE DONE, BED ALARM ENGAGED, DENIES ANY COMPLAINTS OR NEEDS CURRENTLY.
--- NOTE | 2019-05-09 19:22 | NUR ---
INITIALLY UP IN CHAIR DURING SHIFT CHANGE REPORT FROM DAY SHIFT NURSE.
--- NOTE | 2019-05-09 19:51 | NUR ---
Patient attended all therapies today. He is currently resting in bed at this time, call light in reach and bed alarm is on. His stopped by today and was informed of the patient fall yesterday. She said that if staff is unable to get ahold of her to call her son's number . This was communicated to shift supervisor film processing. Patient used his call light appropriatly today and waited for staff to arrive before transferring. Reported off to night nurse.
--- NOTE | 2019-05-10 01:00 | NUR ---
RESTING QUIETLY IN BED, EYES CLOSED, BREATHING NONLABORED & EVEN. DOES NOT AWAKEN WHEN ROOM ENTERED. BED ALARM ON
[2019-05-10 04:30] VITALS: BP 146/89; PULSE 67; TEMP 97.7
--- NOTE | 2019-05-10 04:30 | NUR ---
RESTING IN BED, EYES CLOSED, AWAKENS WITH NAME CALLED, BREATHING EVEN AND NONLABORED. BED ALARM ON. DRINKING OFFERED ORANGE JUICE AT THIS TIME. FSBS CHECKED AT 73
--- NOTE | 2019-05-10 10:16 | NUR ---
SW attended a family meeting with the patient and his , Carrie. Also present was IPR Director, PT, OT, & ST. IPR Director started by explaining the purpose of the meeting. PT/OT/ST then discussed the patient's progress and what they would like to continue to work on with the patient. IPR Director discussed the teams plan of a re-evaluation next Wednesday. The patient and his were in agreeance to this plan. His states that she would just like for the team to keep working on what they discussed. All questions were answered by the team. SW to continue to follow.
--- NOTE | 2019-05-10 10:29 | NUR ---
Patient working with therapy at this time. Tolerated diet well eating 100% of his breakfast. Patient denies pain at this time or any questions. Will continue to monitor.
--- NOTE | 2019-05-10 16:17 | NUR ---
SW met with the patient to present and discuss the IPR Team Conference Note. SW reviewed the team's recommendation of re-evaluation for next Wednesday. The patient was in agreeance to this and had no other questions or concerns for SW at this time. SW to continue to follow.
[2019-05-10 16:43] VITALS: BP 101/54; PULSE 105; TEMP 97.4
--- NOTE | 2019-05-10 18:30 | NUR ---
Patient attended all therapies today. Patient was a one touch assist with walker and gait belt to the bathroom this evening. Required two person assist one person to stabilize patient while other staff member changed his brief. Patient denied pain this shift. Reported off to night nurse.
--- NOTE | 2019-05-10 20:00 | NUR ---
PATIENT RESTING IN BED DURING SHIFT CHANGE REPORT FROM DAY SHIFT NURSE. BED ALARM ENGAGED. NO OTHER NEEDS REPORTED.
[2019-05-11 05:12] VITALS: BP 106/47; PULSE 68; TEMP 97.8
--- NOTE | 2019-05-11 08:16 | NUR ---
PATIENT RESTING IN BED DURING SHIFT CHANGE REPORT TO DAY SHIFT NURSE. BED ALARM ENGAGED.
--- NOTE | 2019-05-11 09:22 | NUR ---
Report from CRISTY Douglas. Pt was asleep in bed at shift change. Awakened and set up for breakfast in bed, HOB at 90*, took morning pills whole with thin liquids, pt denies pain, slightly gruff, turned bed alarm on, call lt in reach, yellow grippers and kina fall wrist bands in place, glasses on. With ST now.
--- NOTE | 2019-05-11 12:32 | NUR ---
Pt to chair for lunch, alarm on, call lt in reach, denies pain, denies needs.
--- NOTE | 2019-05-11 18:44 | NUR ---
Turned bed alarm on, glasses and yellow grippers in place, kina yellow fall risk bands in place. Call lt in reach.
[2019-05-11 20:34] VITALS: BP 131/67; PULSE 89; TEMP 98.1
--- NOTE | 2019-05-12 06:28 | NUR ---
PT GRUMPY THIS AM- DEPRESSED BEHAVIOR. RELATES JUST WANTS TO GO HOME. ACCUCHECK THIS AM 94. INCONTINENT URINE BED PAD AND SHIRT. CHANGED AND CLEANED UP.
[2019-05-12 06:48] VITALS: BP 129/49; PULSE 72; TEMP 98.6
--- NOTE | 2019-05-12 08:27 | NUR ---
Bedside report from CRISTY Delgado. Pt to chair for breakfast, took pills all together (upon his insistance) with thin liquids. Asked pt twice for name and - may not have heard the first time, placed pills in pill cup in frnt of pt and then cued pt to take them, he hesitated.
--- NOTE | 2019-05-12 12:41 | NUR ---
Pt to chair for lunch, good mood today, denies pain, alarm on, yellow grippers and glasses in place.
--- NOTE | 2019-05-12 15:02 | NUR ---
WILL met with the patient to follow up. The patient states that he is doing alright. He asked when he can go home. WILL reviewed the plan of a re-eval on Wednesday and that SW would follow up with him and his afterwards with any updates or tentative plans. The patient verbalized understanding. He had no other questions or concerns at this time. SW to continue to follow.
[2019-05-12 17:07] VITALS: BP 104/52; PULSE 81; TEMP 98.6
--- NOTE | 2019-05-12 20:43 | NUR ---
visited around supper time. Pt in bed at shift change, SCDs to BLE, yellow grippers and fall wrist bands bilaterally, bed alarm on, call lt in reach, glasses in place. Pt denies pain. Bedside report to CRISTY Stephen.
--- NOTE | 2019-05-12 22:00 | NUR ---
Patient rests in bed on left side. Awakened for HS meds and all reviewed and given. Denies pain. Declines snack.
--- NOTE | 2019-05-13 02:54 | NUR ---
Patient has been resting with eyes closed. Respirations with ease.
[2019-05-13 05:35] VITALS: BP 159/64; PULSE 73; TEMP 98.4
--- NOTE | 2019-05-13 08:45 | NUR ---
Patient resting in bed at this time, call light in reach and bed alarm is on. Patient denies pain at this time.
[2019-05-13 16:31] VITALS: BP 119/60; PULSE 94; TEMP 98.4
--- NOTE | 2019-05-13 19:25 | NUR ---
Patient attended group therapy today. He denied pain this shift. He tolerated diet well, but only ate half of his supper this evening. stopped by and gave him some sweets today - see slightly elevated blood sugars. Patient given insulin last two meals. He was incontinent most of the day, with staff changing his brief when needed. He did not have a bowel movement today. Reported off to night nurse.
--- NOTE | 2019-05-13 20:45 | NUR ---
Patient awakened for HS meds, reviewed and given. Denies pain. Incontient of small amount of urine in pullup and changed/chelsey-care done and desenex powder applied. Denied need for toileting. Declined snack.
--- NOTE | 2019-05-14 02:56 | NUR ---
Patient rests with eyes closed. Respirations with ease.
--- NOTE | 2019-05-14 04:45 | NUR ---
Woke patient for toileting and adamently denies need. States "don't know" to if pad wet. Nurse checked and patient incontinent large amount of urine through pad. Patient sat up on side of bed with mod/min assist and removes shirt and doned clean one after cleansed with bath wipe. New attends applied by nurse and patient rests back in bed. Patient voices dislike for being woke up at 0500, sympathized with patient. Patient rested with eyes closed through the night.
[2019-05-14 04:54] VITALS: BP 143/61; PULSE 68; TEMP 98
--- NOTE | 2019-05-14 12:40 | NUR ---
PT WAS GOTTEN UP TO CHAIR FOR LUNCH. PT WAS NOT STEADY ON HIS FEET. CHAIR ALALRM ON
[2019-05-14 16:00] VITALS: BP 98/59; PULSE 92; TEMP 98.3
--- NOTE | 2019-05-14 20:01 | NUR ---
Lying in bed on left side. Denies pain. Groin area red. Tawanna care provided. Patient denies further needs at this time.
--- NOTE | 2019-05-14 23:28 | NUR ---
Lying in bed in supine position with eyes closed. Respirations even and unlabored. No signs or symptoms of discomfort noted at this time.
--- NOTE | 2019-05-15 02:31 | NUR ---
Lying in bed on left side with eyes closed. Respirations even and unlabored. No signs or symptoms of discomfort noted.
[2019-05-15 03:56] VITALS: BP 145/72; PULSE 79; TEMP 97.4
--- NOTE | 2019-05-15 04:06 | NUR ---
Lying in bed on left side with eyes closed. Opens eyes when name called out. Explains that he just wants to sleep. Explained to the patient that we will just get his vitals and change his brief then allow him to go back to sleep. Patient agrees. Vitals obtained. Brief changed, chelsey care provided. Patient red and excoriated in chelsey area. Desenex/lotrimin powder applied. Patient denies further needs at this time.
--- NOTE | 2019-05-15 05:57 | NUR ---
Continues to deny pain. Offered to assist the patient into chair and the patient declines and wants to stay in bed a little bit longer to sleep. Patient denies further needs at this time.
--- NOTE | 2019-05-15 09:40 | NUR ---
Patient working with therapy at this time. Denies pain this morning. Tolerated breakfast well. Voiced frustration about night getting to sleep through the night and sleep in in the morning. Denied any questions. Will continue to monitor.
--- NOTE | 2019-05-15 14:02 | NUR ---
Patient working with OT at this time. Denies any questions, just very tired. Just left with PT for his last session.
--- NOTE | 2019-05-15 14:53 | NUR ---
WILL met with the patient to follow-up. The patient reports his visits him everyday and one of his sons visited yesterday, 05/14. The patient reports he is ready to go home. SW informed him the team will re-evaluate him on Wednesday, 05/16. Then WILL will meet with him to discuss recommendations. WILL will continue to monitor.
[2019-05-15 16:50] VITALS: BP 77/55; PULSE 117; TEMP 97.8
[2019-05-15 17:30] VITALS: BP 88/59
--- NOTE | 2019-05-15 20:00 | NUR ---
RESTING IN CHAIR THEN PUT TO BED DURING SHIFT CHANGE REPORT FROM DAY SHIFT NURSE. BED ALARM ENGAGED, CHAIR ALARM ENGAGED WHEN UP IN CHAIR. DENIES ANY OTHER NEEDS OR COMPLAINTS.
[2019-05-15 20:08] VITALS: BP 117/60; PULSE 107
--- NOTE | 2019-05-16 01:07 | NUR ---
Resting with eyes closed, breathing even and nonlabored. Does not awaken when room entered. Bed alarm engaged.
--- NOTE | 2019-05-16 02:20 | NUR ---
OBSERVED SCANT INCONTINENT URINE, PERICARE DONE/APPLIED MALE INCONTINENT PAD TO PENIS/SCROTAL AREA. BED ALARM ENGAGED, DENIES ANY OTHER NEEDS AT THIS TIME.
[2019-05-16 05:00] VITALS: BP 132/61; PULSE 69; TEMP 98.5
--- NOTE | 2019-05-16 07:13 | NUR ---
Patient resting in bed during shift change report given to day shift nurse. Bed alarm engaged. Patient denies any c/o at this time.
--- NOTE | 2019-05-16 09:46 | NUR ---
Patient was a one assist with walker and gait belt to the bathroom. Patient denied pain this morning. Tolerating diet well. Had a large bowel movement this morning.
--- NOTE | 2019-05-16 12:22 | NUR ---
Patient eating his lunch sitting in his recliner at this time. Patient denies any pain. He has his slip proof socks on, call light in reach and chair alarm set. Will continue to monitor.
[2019-05-16 16:09] VITALS: BP 110/56; PULSE 99; TEMP 98.8
--- NOTE | 2019-05-16 16:32 | NUR ---
WILL met with the patient to present and discuss the IPR Team Conference Note 2. WILL reviewed the patient's anticipated discharge date is 05/23/19 pending home evaluation. A home evaluation is scheduled for 05/19/19 at 0900. The home evaluation will determine next level of care. However, home health is being recommended at this time. WILL provided Medicare.[employer]'s list of home health agencies. A choice was not made at this time. WILL will continue to follow.
--- NOTE | 2019-05-16 19:30 | NUR ---
UP IN CHAIR DURING SHIFT CHANGE REPORT FROM DAY SHIFT NURSE. CHAIR ALARM ENGAGED.
--- NOTE | 2019-05-16 20:00 | NUR ---
UP IN CHAIR DURING SHIFT CHANGE REPORT FROM DAY SHIFT NURSE. CHAIR ALARM ENGAGED.
--- NOTE | 2019-05-16 22:06 | NUR ---
Patient attended all therapies today. Patient will be having a home eval this Wednesday. Patient tolerated meals well and had no reports of nausea. Blood pressures have been stable today. Will continue to monitor.
--- NOTE | 2019-05-16 23:48 | NUR ---
RESTING IN BED WITH EYES CLOSED, DOES NOT AWAKEN WHEN ROOM ENTERED. BREATHING NONLABORED AND EVEN. BED ALARM ENGAGED.
--- NOTE | 2019-05-17 05:27 | NUR ---
PATIENT RESTING IN BED WITH EYES CLOSED, DOES NOT AWAKEN WHEN ROOM ENTERED. BREATHING EVEN AND NONLABORED. BED ALARM ENGAGED
[2019-05-17 06:00] VITALS: BP 123/62; PULSE 71; TEMP 98
--- NOTE | 2019-05-17 07:43 | NUR ---
UP IN CHAIR DURING SHIFT CHANGE REPORT GIVEN TO DAY SHIFT NURSE. CHAIR ALARM ENGAGED.
--- NOTE | 2019-05-17 08:00 | NUR ---
SEE MORNING SHIFT ASSESSMENT.
[2019-05-17 16:38] VITALS: BP 100/50; PULSE 94; TEMP 98.7
--- NOTE | 2019-05-17 20:06 | NUR ---
REPORT GIVEN TO CRISTY WOMACK.
--- NOTE | 2019-05-17 20:30 | NUR ---
Patient woke up for HS meds/reviewed and given. Denies pain or needs and returns to resting with eyes closed. Alert and oriented x 4.
--- NOTE | 2019-05-18 02:59 | NUR ---
Patient rests with eyes closed. Respirations with ease.
[2019-05-18 04:56] VITALS: BP 146/73; PULSE 60; TEMP 97.8
--- NOTE | 2019-05-18 05:30 | NUR ---
Patient has been resting with eyes closed through the night. Awakened by nurse for toileting/declines/drowsy. Incontinent urine through pad and linen and attends changed. Patient repositions self up in bed with verbal cueing. Denies pain or needs.
[2019-05-18 15:51] VITALS: BP 106/63; PULSE 88; TEMP 98
--- NOTE | 2019-05-18 16:44 | NUR ---
WILL met with the patient and the patient's , Carrie to discuss home health options. A list of Medicare.gov's was provided. Carrie reports she will read over the list then inform WILL of choice. WILL discussed the home eval that will be on 05/19 in the AM. railroad emergency services manager will continue to follow.
--- NOTE | 2019-05-18 20:00 | NUR ---
PT RESTING IN BED. WAKES EASY FOR MEDS AND ACCUCHECK. COOPERATIVE. ORIENTED BUT FORGETFUL. ACCUCHECK 112. REFUSED HS SNACK. WILL CHECK BS CHRIS IN THE AM. PT DENEIS PAIN. CALL LIG IN REACH. BED ALARM SET.
--- NOTE | 2019-05-18 22:15 | NUR ---
No acute changes. Pt was not impulsive today to my knowledge. visited this afternoon. Pt denies pain. Bedside report to CRISTY Delgado. Pt in bed with alarm on.
[2019-05-19 05:54] VITALS: BP 128/61; PULSE 73; TEMP 98.7
--- NOTE | 2019-05-19 06:26 | NUR ---
INCONT URINE- LEAKAGE FROM DIAPER. ASSISTED TO CHANGE SHIRT AND ADULT DIAPER. PT ORIENTED AND COOPERATIVE. ACCUCHECK 79. ASYMPTOMATIC. CALL LIGHT IN REACH. BED ALARM SET.
--- NOTE | 2019-05-19 08:03 | NUR ---
Patient reports sleeping well last night. Ate all his breakfast. Denied any pain or questions at this time.
[2019-05-19 15:54] VITALS: BP 118/49; PULSE 83; TEMP 98.5
--- NOTE | 2019-05-19 18:00 | NUR ---
Patient went with OT today for his home evaluation. See OT notes and recommendations. Patient's will be talking with her son to discuss their options upon discharge. Patient tolerated his meals well this shift. Will continue to monitor.
--- NOTE | 2019-05-19 21:00 | NUR ---
PT SLEEPING. WAKES EASILY. COPPERATIVE. ANGOON. DENIES PAIN AT THIS TIME. [id number] BUT ORIENTED. PT INCONT OF URINE. CHANGE CLOTHING WITH MAX ASSIST. CALL LIGHT IN REACH, BED A
[2019-05-20 05:49] VITALS: BP 144/63; PULSE 76; TEMP 98.1
--- NOTE | 2019-05-20 09:36 | NUR ---
Bedside report from CRISTY Delgado. Pt was in bed with alarm on, call lt in reach, yellow gown/gripper socks, fall wrist bands. Glasses in place.
--- NOTE | 2019-05-20 15:14 | NUR ---
visited for a while after lunch, pt had BM, to bed for nap, denies pain, alarm on, call lt in reach, glasses and grippers in place.
[2019-05-20 16:39] VITALS: BP 108/65; PULSE 85; TEMP 98.2
--- NOTE | 2019-05-20 21:00 | NUR ---
PT RESTING IN BED. NO DISTRESS. TALKATIVE TONIGHT. PT VERBALIZES WANTS TO GO HOME. PT INCONTINENT URINE. WEAR DIAPERS. CHANGED. CALL LIGHT IN REACH. BED ALARM SET.
[2019-05-21 05:35] VITALS: BP 131/64; PULSE 71; TEMP 98
--- NOTE | 2019-05-21 07:25 | NUR ---
Bedside report from CRISTY Delgado. Pt was asleep in bed with alarm on, call lt in reach. Set up for breakfast.
--- NOTE | 2019-05-21 08:08 | NUR ---
Set up for oral cares and shaving- pt states helps with shaving. SCDs to BLE and yellow gripper socks. Took pills whole with water. Glasses in place, bed alarm on, call lt in reach.
[2019-05-21 16:46] VITALS: BP 100/60; PULSE 95; TEMP 98.6
--- NOTE | 2019-05-21 16:51 | NUR ---
86/51 BP with machine, manually 100/60. Pt denies dizziness nor headache. In chair with alarm on, call lt in reach, yellow grippers on.
--- NOTE | 2019-05-21 21:00 | NUR ---
PT RESTING IN BED. ORIENTED BUT WITH SLOW MENTATION. NO IMPULSIVE BEHAVIOR NOTED. DENIES PAIN. INCONTINENT OF URINE WITH EACH VOID. WEARS DIAPERS. CALL LIGHT IN REACH. BED ALARM SET.
[2019-05-22 05:39] VITALS: BP 135/65; PULSE 69; TEMP 98
--- NOTE | 2019-05-22 09:28 | NUR ---
SW attempted to contact the patient's , Carrie to discuss home health options. Carrie's voicemail was full, SW could not leave message. SW attempted to contact the patient's son, Scot, left message. medical and health services manager will continue to follow.
--- NOTE | 2019-05-22 10:09 | NUR ---
The patient's , Carrie contacted WILL and reports [facility] will be their choice. SW to fax referral to [facility]. The patient also inquired about a wheelchair. WILL will discuss options regarding this inquiry with physical therapy.
--- NOTE | 2019-05-22 15:15 | NUR ---
Jorge from [facility] reports they can accept the patient for services. career services coordinator will continue to follow.
--- NOTE | 2019-05-22 15:37 | NUR ---
Floor Helper met with patient and patient's to review IM form. Patient's reviewed the form and provided signature. SW placed original in chart and provided copy to patient. Patient to discharge tomorrow.
--- NOTE | 2019-05-22 15:59 | NUR ---
WILL met with the patient and the patient's to discuss wheelchair and rules for alf placement after discharge. WILL contacted local [employer] company to inquire about Medicare wheelchair coverage. The documentation shows the patient uses his walker for amublating and uses wheelchair only for transporting to and from therapy. Due to this information insurance will not cover a wheelchair for the patient. WILL communicated this to the patient and to the patient's . The patient's understood and will rent a wheelchair when the patient has appointments. WILL informed the patient and the patient's that they have 30 days after discharge to seek alf rehab and SW would assist in facilitating this, if needed. There are no additional needs at this time.
[2019-05-22 16:53] VITALS: BP 129/65; PULSE 82; TEMP 97.4
--- NOTE | 2019-05-22 20:27 | NUR ---
Shift summary: Report from CRISTY Delgado. Pt participated in last day of therapies, plan to discharge home tomorrow with HH. Pt denied pain, took pills whole with water. Pt does not call when he becomes incontinent of urine, one assist with gait belt, walker, to BR and for changing. Groin has old redness now dull, Desenex powder applied. Pt was gruff with [employer] DEAN this afternoon when enc to toilet and move to chair for lunch, enc given, pt eventually agreeable. Mood improved this evening. Pt denied knowing that he was leaving tomorrow. Report to CRISTY Vazquez. Pt asleep in bed with alarm on, call lt in reach, yellow gripper socks in place, kina fall wrist bands in place.
--- NOTE | 2019-05-22 22:00 | NUR ---
Shift assessment complete. Pt in bed, awake. Denies pain. Incontinent of lg urine. Pants removed (per pt request), skin cleansed with soap and water. Coccyx noted to be reddened, skin blanches. Patient turns self in bed. Bed pad changed, clean brief placed, along with incontinence wrap. Patient a/o x4. Gown placed per patient request. Denies further needs at this time. Will continue to monitor.
[2019-05-22 22:21] VITALS: BP 116/53; PULSE 72
[2019-05-23 04:07] VITALS: BP 132/52; PULSE 71; TEMP 97.8
--- NOTE | 2019-05-23 04:19 | NUR ---
Patient in bed, awake. Denies pain. Incontinent of urine. Brief and bedpad changed. Denies further needs at this time. Will continue to monitor.
--- NOTE | 2019-05-23 09:01 | NUR ---
Patient resting in recliner at this time, call light in reach and chair alarm set. Denies pain. Reports sleeping well last night. Ate 100% of breakfast. Will continue to monitor.
[2019-05-23] MEDS ORDERED: Desenex/Lotrimin AF TP (09:32)
--- NOTE | 2019-05-23 09:48 | NUR ---
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 Son will pass the message along to his mom and have her give us a call back.
--- NOTE | 2019-05-23 12:33 | NUR ---
Patient Health Summary, Discharge Summary, and Home Meds printed and reviewed with patient and . Stressed importance of follow up appointments. Called prescriptions for Atorvastatin and Lisinopril to pharmacy of choice. Belongings gathered by CRISTY/Danya including dirty clothes out of laundry hamper; glasses; shoes and clean clothes and misc. items. Patient transported via wheelchair by GEMA/Brown and seatbelted for ride home with . Patient and denied any questions.
--- NOTE | 2019-05-23 13:26 | NUR ---
Patient to discharge home today with Home Health. WILL faxed discharge orders to [facility]. No additional concerns at this time.
--- NOTE | 2019-05-23 15:37 | NUR ---
Discharge QIM scores were reviewed by the team. Code of 2 chosen for toileting hygiene was determined by team discussion to be the most usual performance for this patient during the assessment period. Code of 6 chosen for rolling left to right was determined by team discussion to be the most usual performance for this patient during the assessment period. Code of 6 chosen for sit to lying was determined by team discussion to be the most usual performance for this patient during the assessment period. Code of 6 chosen for lying to sitting on edge of bed was determined by team discussion to be the most usual performance for this patient during the assessment period. Code of 4 chosen for walk 10 feet was determined by team discussion to be the most usual performance for this patient during the assessment period.--Renita Sanchez, PD
== END 2019-05-23 11:30 | disposition home health service (06) | DRG 57 ==
PROVIDERS: ADMIT Internal Medicine
DX: I69.354 Hemiplegia and hemiparesis following cerebral infarction affecting left non-dominant side (principal); I25.10 Atherosclerotic heart disease of native coronary artery without angina pectoris; I10 Essential (primary) hypertension; E11.9 Type 2 diabetes mellitus without complications; N40.0 Benign prostatic hyperplasia without lower urinary tract symptoms; G20 Parkinson's disease; M25.462 Effusion, left knee; K21.9 Gastro-esophageal reflux disease without esophagitis; Z66 Do not resuscitate; Z79.84 Long term (current) use of oral hypoglycemic drugs; E78.5 Hyperlipidemia, unspecified; Z79.02 Long term (current) use of antithrombotics/antiplatelets; Z79.82 Long term (current) use of aspirin; Z95.5 Presence of coronary angioplasty implant and graft; Z91.81 History of falling
CPT/HCPCS: 99222-AI; 99231-AI; 99232-AI; 99239; J1650; J1815; J7030

== ENCOUNTER 2019-08-08 14:01 | Outpatient (RCR) | payer MEDICARE, OTHER ==
[~2019-08-08 14:01] MED LIST changes: +Desenex/Lotrimin AF TP
== END 2019-11-06 | disposition home or self-care (01) ==
LOC: WSST
DX: I69.911 Memory deficit following unspecified cerebrovascular disease (principal); I69.919 Unspecified symptoms and signs involving cognitive functions following unspecified cerebrovascular disease

== ENCOUNTER 2019-08-09 14:00 | Outpatient (RCR) | payer MEDICARE, OTHER | END 2019-10-11 | disposition home or self-care (01) | LOC: MKS.ESL.OT | DX: I69.351 Hemiplegia and hemiparesis following cerebral infarction affecting right dominant side (principal); G46.3 Brain stem stroke syndrome ==

== ENCOUNTER → 2019-11-07 | Outpatient (CLI) | payer MEDICARE, OTHER | LOC: COL.RAD 07:42 | DX: I71.4 Abdominal aortic aneurysm, without rupture (principal) ==

== ENCOUNTER → 2020-09-24 | Outpatient (CLI) | payer MEDICARE, OTHER ==
[~2020-09-24] MED LIST changes: +IMDUR 30MG30 MG/TAB PO; +LASIX 40MG TABL40 MG PO; +NORVASC 10MG10 MG PO
== END ==
LOC: COL.VAS 13:36
DX: I50.23 Acute on chronic systolic (congestive) heart failure (principal); I36.1 Nonrheumatic tricuspid (valve) insufficiency

== ENCOUNTER → 2020-11-05 | Outpatient (CLI) | payer MEDICARE, OTHER | LOC: COL.VAS 12:21 | DX: I73.9 Peripheral vascular disease, unspecified (principal) ==

== ENCOUNTER → 2020-11-11 | Outpatient (CLI) | payer MEDICARE, OTHER | LOC: COL.RAD 07:30 | DX: I71.4 Abdominal aortic aneurysm, without rupture (principal) ==

== ENCOUNTER → 2020-11-18 | Outpatient (CLI) | payer MEDICARE, OTHER | LOC: COL.RAD 10:59 | DX: I71.4 Abdominal aortic aneurysm, without rupture (principal); I70.0 Atherosclerosis of aorta; S22.080A Wedge compression fracture of T11-T12 vertebra, initial encounter for closed fracture | CPT/HCPCS: Q9967 ==

== ENCOUNTER 2021-01-28 09:54 | Day surgery (SDC) | payer MEDICARE, OTHER ==
[~2021-01-28] VITALS: Ht 182.9 cm; Wt 110.0 kg
[2021-01-28] VITALS (10 sets, daily range): BP systolic 130–159; BP diastolic 70–82; PULSE 71–87; TEMP 98.2
[~2021-01-28 09:54] MED LIST changes: -IMDUR 30MG30 MG/TAB PO; -LASIX 40MG TABL40 MG PO; -NORVASC 10MG10 MG PO
[2021-01-28] MEDS ORDERED: LIPITOR 40MG TA40 MG PO (10:12)
[2021-01-28] MEDS ORDERED: LASIX 40MG TABL40 MG PO (10:13)
[2021-01-28] MEDS ORDERED: NORVASC 10MG10 MG PO (10:14)
[2021-01-28] MEDS ORDERED: FLOMAX 0.40.4 MG/CAP PO (10:43)
[2021-01-28 10:44] LABS: HEMOGLOBIN 10.2 g/dl (13.5-18.0); MEAN CELL VOLUME 91 fl (80.0-100.0); MEAN CORPUSCULAR HEMOGLOBIN 29 pg (27.0-31.0); MEAN CORPUSCULAR HGB CONC 32 g/dl (33.0-37.0); MEAN PLATELET VOLUME 10.8 fl (7.4-10.4); PLATELET COUNT 180 K/mm3 (130-400); RED BLOOD COUNT 3.57 M/mm3 (4.20-5.60)
[2021-01-28 10:45] LABS: HEMATOCRIT 32.4 % (42.0-52.0)
[2021-01-28 10:50] LABS: INR 1.1 (0.8-3.0); PROTHROMBIN TIME 12.2 SECONDS (9.7-12.8)
[2021-01-28 10:52] LABS: PARTIAL THROMBOPLASTIN TIME 30.8 SECONDS (26.0-37.0)
[2021-01-28 10:55] LABS: CALCIUM 8.9 mg/dL (8.4-10.2); CREATININE, serum 1.03 (0.66-1.25); POTASSIUM 4.3 mmol/L (3.4-5.0)
--- NOTE | 2021-01-28 11:13 | NUR ---
Initial visit; Patient thanked News Production Assistant for coming to visit him prior to his surgical procedure. News Production Assistant offered comfort and encouragement.
--- NOTE | 2021-01-28 14:10 | NUR ---
SEE MERGE DOCUMENTATION FOR MEDICATION ADMINISTRATION TIMES AND INTRA/POST PROCEDURE SEDATION ASSESSMENTS.
--- NOTE | 2021-01-28 14:30 | NUR ---
REport from Arnold MUNIZ. Right Tband with 12 cc air CD&I, good pulses and cap refill < 3secs noted. VSS. bedside
[2021-01-28] MEDS ORDERED: IMDUR 30MG30 MG/TAB PO (15:08)
--- NOTE | 2021-01-28 17:15 | NUR ---
Right tband released of 12 cc air and dressing applied. INT discontinued intact. Discharge instructions given. Transferred to private car by private
== END 2021-01-28 17:15 | disposition home or self-care (01) ==
LOC: COL.CAR 09:54
PROVIDERS: Internal Medicine Cardiovascular Disease
DX: I25.10 Atherosclerotic heart disease of native coronary artery without angina pectoris (principal); I25.82 Chronic total occlusion of coronary artery; I10 Essential (primary) hypertension; E11.9 Type 2 diabetes mellitus without complications; Z20.822 Contact with and (suspected) exposure to COVID-19; Z79.02 Long term (current) use of antithrombotics/antiplatelets
CPT/HCPCS: J1644; J2250; J3010; Q9967

== ENCOUNTER → 2021-11-27 | Outpatient (CLI) | payer MEDICARE, OTHER ==
[~2021-11-27] MED LIST changes: +IMDUR 30MG30 MG/TAB PO; +LASIX 40MG TABL40 MG PO; +NORVASC 10MG10 MG PO
== END ==
LOC: COL.RAD 08:32
DX: Z13.6 Encounter for screening for cardiovascular disorders (principal); I71.4 Abdominal aortic aneurysm, without rupture

== ENCOUNTER 2022-09-11 22:31 | Inpatient (IN) | payer MEDICARE, OTHER ==
[~2022-09-11] VITALS: Ht 182.9 cm; Wt 103.4 kg
[2022-09-11 23:01] LABS: BASO # 0.1 K/mm3 (0.0-0.2); BASO % 0.5 % (0.0-2.0); EOS % 0.2 % (0.0-4.0); GRAN # 12.5 K/mm3 (1.4-6.5); GRAN % 84.4 % (42.2-75.2); HEMOGLOBIN 10.8 g/dl (13.5-18.0); LYMPH # 0.9 K/mm3 (1.2-3.4); LYMPH % 6.2 % (20.0-51.0); MEAN CELL VOLUME 88 fl (80.0-100.0); MEAN CORPUSCULAR HEMOGLOBIN 29 pg (27-31); MEAN CORPUSCULAR HGB CONC 32 g/dl (33.0-37.0); MEAN PLATELET VOLUME 10.6 fl (7.4-10.4); MONO # 1.2 K/mm3 (0.1-0.6); MONO % 8.2 % (1.7-9.3); PLATELET COUNT 213 K/mm3 (130-400); RED BLOOD COUNT 3.77 M/mm3 (4.20-5.60); REDCELL DISTRIBUTION WIDTH-CV 13.4 % (11.5-14.5)
[2022-09-11 23:10] LABS: HEMATOCRIT 33.3 % (42.0-52.0)
[2022-09-11 23:15] LABS: INR 1.3 (0.8-3.0); PROTHROMBIN TIME 14.7 SECONDS (9.7-12.8)
[2022-09-11 23:21] LABS: ALBUMIN 3.4 gm/dL (3.4-4.8); ALKALINE PHOSPHATASE 78 U/L (40-150); ANION GAP 15 mmol/L (7-16); AST,SGOT 13 U/L (5-34); BILIRUBIN,TOTAL 0.9 mg/dL (0.2-1.2); BLOOD UREA NITROGEN 18 mg/dL (8-26); C-REACTIVE PROTEIN 4.81 mg/dL (0.00-0.50); CALCIUM 8.7 mg/dL (8.4-10.2); CARBON DIOXIDE 22 mmol/L (23-31); CHLORIDE 101 mmol/L (98-107); CREATININE, serum 1.79 mg/dL (0.72-1.25); GLUCOSE 280 mg/dL (70-99); POTASSIUM 4.2 mmol/L (3.5-4.5); SODIUM 138 mmol/L (136-145)
[2022-09-11 23:22] LABS: ALANINE AMINOTRANSFERASE < 6 U/L (0-55)
[2022-09-11 23:26] LABS: COLLECTION METHOD IN
[2022-09-11 23:30] LABS: TROPONIN-I < 0.010 ng/mL (0.00-0.033)
[2022-09-11 23:31] LABS: URINE APPEARANCE Hazy (CLEAR/HAZY); URINE COLOR Yellow (YELLOW); URINE GLUCOSE Negative (NEGATIVE); URINE KETONE TRACE (NEGATIVE); URINE PROTEIN(semi-quant) 1+ (NEGATIVE); URINE UROBILINOGEN 0.2 E.U/dL (0.2-1.0)
[2022-09-11 23:32] LABS: MUCOUS Present (NOT PRESENT); URINE BACTERIA None Seen /hpf (NONE SEEN); URINE BLOOD 1+ (NEGATIVE); URINE NITRATE Negative (NEGATIVE); URINE RBC 20-50 /hpf (0-2)
[2022-09-12] VITALS (1019 sets, daily range): BP systolic 95–138; BP diastolic 51–71; PULSE 82–101; TEMP 98.6–101.9; O2SAT 71–100
--- NOTE | 2022-09-12 01:15 | NUR ---
Patient arrived to the unit from the ED. Patient is alert and oriented. Patient is weak and required a 3 person assist from the ED cot to the ICU bed. Patient received 1.5 L of fluid in ER. Patient is finishing the second 1L blous out of three ordered. Patient is currently on 2L NC sating 97-100%. Patients Left Great Toe is swollen, pink, and warm to the touch. This RN outlined reddened area with a medical grade marker. Patient has an abrasion on the lower portion of the head. Minimal bleeding. Chux placed behind patients head to assess amount. Patient receiving vancomycin IV. Call light within reach.
--- NOTE | 2022-09-12 02:48 | NUR ---
This RN noticed patient audibly wheezing from the nursing station. RN assessed the situation. Patient is tachypneic, breathing between 32-34bmp. RN called Respiratory Therapy for a second opinion. Respiratory recommended a breathing treatment. At this time there are no orders for a breathing treatment. Consulting LACY Collazo for orders. 0255- This RN contacted LACY Collazo and discussed patients status. After discussing, new orders for breathing treatment PRN. During this discussion RN and LACY Collazo agreed BiPap may be necessary if breathing treatment is unsuccessful. Patient is currently tachycardic in the low 100s. Patients temperature is 100.8 orally. Patient has PO tylenol Q4hr PRN. RN will administer tylenol if breathing treatment is successful.
--- NOTE | 2022-09-12 03:11 | NUR ---
RT at the bedside administering breathing treatment.
--- NOTE | 2022-09-12 03:50 | NUR ---
Patient's wheezing has improved slightly. Patient is able to speak full sentences before becoming short of breath. Patient took tylenol with no complications.
--- NOTE | 2022-09-12 06:19 | NUR ---
82 yo male admitted for further care and management of acute respiratory failure and severe sepsis likely from a skin/soft tissue source (L great toe cellulitis). ht 182.9 cm wt 100 kg SCr 1.79 with estimated CrCl ~36 ml/min half life 29.9 hours Plan: Patient may not follow population based kinetics secondary to renal dysfunction. Will give an initial loading dose of vancomycin 2000 mg x1 (20 mg/kg); followed by a maintenance regimen of vancomycin 1500 mg q36h to target a goal trough of 10-15 mcg/ml. Will follow patient's renal function, micro data, and vancomycin levels as indicated to assess for any necessary changes to regimen. Thank you for this dosing consult.
[2022-09-12 09:09] LABS: MEAN CELL VOLUME 89 fl (80.0-100.0); MEAN CORPUSCULAR HGB CONC 32 g/dl (33.0-37.0); MEAN PLATELET VOLUME 10.7 fl (7.4-10.4); PLATELET COUNT 181 K/mm3 (130-400); RED BLOOD COUNT 3.34 M/mm3 (4.20-5.60); REDCELL DISTRIBUTION WIDTH-CV 13.6 % (11.5-14.5)
[2022-09-12 09:17] LABS: HEMATOCRIT 29.7 % (42.0-52.0); HEMOGLOBIN 9.5 g/dl (13.5-18.0); MEAN CORPUSCULAR HEMOGLOBIN 28 pg (27-31)
[2022-09-12 09:19] LABS: ALBUMIN 3.1 gm/dL (3.4-4.8); BILIRUBIN,TOTAL 1.5 mg/dL (0.2-1.2); CALCIUM 8.2 mg/dL (8.4-10.2); CREATININE, serum 1.56 mg/dL (0.72-1.25); LACTIC ACID 5.1 mmol/L (0.5-2.0); POTASSIUM 4.1 mmol/L (3.5-4.5); TOTAL PROTEIN 6.3 gm/dL (6.2-8.1)
[2022-09-12 09:31] LABS: HEMOGLOBIN A1C 7.8 %
--- NOTE | 2022-09-12 11:15 | NUR ---
Initial visit; Patient and his thanked Loan Interviewer for looking in on him and offering prayer and God's blessings. Patient was grouchy at first then listened when Loan Interviewer said we all wanted to ade his wish to go home and that's what we are working toward, however when he goes home we want him to be healthy. He and his thanked agreed.
--- NOTE | 2022-09-12 20:30 | NUR ---
Patient assessment completed. Patient is sitting in bed finishing dinner. Patient is alert and oriented x3, vital signs are stable. Patient is slightly tachycardic ranging from 100-106bpm. Upon auscultation, patients lungs have some expiratory wheezing in all vann bilaterally. RN asked patient how they felt breathing, patient responded with "I am feeling just fine". Patient readjusted in bed and call light within reach.
[2022-09-13] VITALS (1285 sets, daily range): BP systolic 125–147; BP diastolic 62–86; PULSE 87–166; TEMP 98.7–99.9; O2SAT 85–100
[2022-09-13 05:46] LABS: BASO % 0.3 % (0.0-2.0); EOS % 0.1 % (0.0-4.0); GRAN # 10.4 K/mm3 (1.4-6.5); GRAN % 80.6 % (42.2-75.2); LYMPH % 7.8 % (20.0-51.0); MEAN CELL VOLUME 87 fl (80.0-100.0); MEAN CORPUSCULAR HGB CONC 33 g/dl (33.0-37.0); MEAN PLATELET VOLUME 10.7 fl (7.4-10.4); MONO # 1.3 K/mm3 (0.1-0.6); MONO % 10.3 % (1.7-9.3); PLATELET COUNT 170 K/mm3 (130-400); RED BLOOD COUNT 3.38 M/mm3 (4.20-5.60); REDCELL DISTRIBUTION WIDTH-CV 13.7 % (11.5-14.5)
[2022-09-13 05:57] LABS: HEMATOCRIT 29.4 % (42.0-52.0); HEMOGLOBIN 9.6 g/dl (13.5-18.0); MEAN CORPUSCULAR HEMOGLOBIN 28 pg (27-31)
[2022-09-13 06:08] LABS: ALBUMIN 2.8 gm/dL (3.4-4.8); BILIRUBIN,TOTAL 1.3 mg/dL (0.2-1.2); CALCIUM 8.5 mg/dL (8.4-10.2); CREATININE, serum 1.36 mg/dL (0.72-1.25); POTASSIUM 3.5 mmol/L (3.5-4.5); TOTAL PROTEIN 6.2 gm/dL (6.2-8.1)
--- NOTE | 2022-09-13 07:35 | NUR ---
BEDSIDE REPORT RECEIVED FROM CRISTY ADAMSON. PT APPEARS TO BE SLEEPING COMFORTABLY AT THIS TIME. NO S/S DISCOMFORT. PIV TO LEFT FOREARM; SALINE LOCKED. LIES SUPINE WITH HOB ELEVATED. VITAL SIGNS STABLE.
--- NOTE | 2022-09-13 11:42 | NUR ---
Senior Fund Accountant rounds: Patient was sitting upright in bed, eating breakfast on his bed table. Two RN (or perhaps MENTAL HEALTH CLINICIAN) were in room with Patient. No Senior Fund Accountant visit completed.
--- NOTE | 2022-09-13 20:45 | NUR ---
Patient assessment completed. Patient is alert and oriented and follows commands. Patient is midly tachycardic, minor expiratory wheezes and tachypneic. Per day shift RN, patient experienced similar symptoms and a breathing treatment helped resolve the situation. RT notified and will come assess the patient. Patient took medications without complications and is now resting comfortably in bed.
--- NOTE | 2022-09-13 21:20 | NUR ---
RT in patient room administering breathing treatment.
--- NOTE | 2022-09-13 22:22 | NUR ---
Spoke with LACY Collazo as patient continues to be tachycardic between 115-120s bpm. This RN discussed patients plan of care. Patients potassium was low at 3.5 this morning and does not show any replacement orders. New orders for a current BMP and Magnesium lab draw. 12-Lead EKG showed Sinus tachycardia with frequent PVCs.
[2022-09-13 23:06] LABS: CALCIUM 8.4 mg/dL (8.4-10.2); CREATININE, serum 1.33 mg/dL (0.72-1.25); MAGNESIUM 1.7 mg/dL (1.6-2.6); POTASSIUM 3.5 mmol/L (3.5-4.5)
[2022-09-14] VITALS (842 sets, daily range): BP systolic 120–140; BP diastolic 53–70; PULSE 87–115; TEMP 97.7–99.6; O2SAT 30–100
--- NOTE | 2022-09-14 05:00 | NUR ---
Notified by telephone maintainerCymtec Systems that patient was having an abnormal rhythm. After assessing patient, new orders for 12 lead EKG. RT notified. EKG faxed to in tele ICU. Dr. Rios recommended an electrolyte check. Labs drawn, LACY Collazo notified about patient status. New orders for cardiology consult.
[2022-09-14 05:32] LABS: CLOSTRIDIUM DIFF A/B NEG
[2022-09-14 06:01] LABS: BASO % 0.2 % (0.0-2.0); EOS # 0.1 K/mm3 (0.0-0.7); EOS % 0.6 % (0.0-4.0); GRAN # 9.8 K/mm3 (1.4-6.5); GRAN % 80.4 % (42.2-75.2); HEMATOCRIT 27.2 % (42.0-52.0); HEMOGLOBIN 8.7 g/dl (13.5-18.0); LYMPH # 1.2 K/mm3 (1.2-3.4); LYMPH % 9.6 % (20.0-51.0); MEAN CELL VOLUME 88 fl (80.0-100.0); MEAN CORPUSCULAR HEMOGLOBIN 28 pg (27-31); MEAN CORPUSCULAR HGB CONC 32 g/dl (33.0-37.0); MEAN PLATELET VOLUME 11.4 fl (7.4-10.4); MONO % 8.5 % (1.7-9.3); PLATELET COUNT 173 K/mm3 (130-400); RED BLOOD COUNT 3.08 M/mm3 (4.20-5.60); REDCELL DISTRIBUTION WIDTH-CV 13.7 % (11.5-14.5)
[2022-09-14 06:03] LABS: ALBUMIN 2.5 gm/dL (3.4-4.8); BILIRUBIN,TOTAL 0.7 mg/dL (0.2-1.2); CALCIUM 8.3 mg/dL (8.4-10.2); CREATININE, serum 1.3 mg/dL (0.72-1.25); POTASSIUM 4.2 mmol/L (3.5-4.5); TOTAL PROTEIN 6.2 gm/dL (6.2-8.1)
--- NOTE | 2022-09-14 13:15 | NUR ---
SW met with patient to complete intake and discuss discharge plan. Patient reports that he lives at home with his Carrie ([phone]) in [place]. He reports to being independent with his ADL's and utilizes a walker to assist with mobility. Patient reports that he no longer drives. Patient has no home oxygen needs. PCP is and he utilizes [facility] ([facility]) for prescriptions. Patient reports that he does have a DPOA-HC established and believe his is his primary agent. WILL contacted TANISHA Reed to discuss a safe discharge as the PT evaluation stated home with HH, however patient had not been up to walk with the therapist over the weekend.
--- NOTE | 2022-09-14 14:11 | NUR ---
PT REPORT GIVEN TO CRISTY GRANT
--- NOTE | 2022-09-14 15:45 | NUR ---
Patient arrived to the unit from ICU at 1450 with audible wheezing upon arrival. Assessment done on patient, with wheezing on bilateral upper lobesand diminished at bilateral bases. Patient's 02 sat read 95% RA. Patient denies shortness of breath. Patient RUE swollen and warm to touch. Bilateral lower extremities, with pitting edema +3 on LLE and +2 on RLE. Left great toe cellulities wrapped with kerlix roll. Tele monitor in tact, berg catheter draining yellow urine in bag. Patient oriented to room and the the use of call light for an assistance. Underwater Hunter at the bedside for breathing treatment.
--- NOTE | 2022-09-14 16:21 | NUR ---
Phone call made to the patients to discuss SNF placement. Spouse reports that the patient has been to [facility] in the past and is agreeable to is SW sending off referrals to both 1. [facility] and 2. [facility] [place]. Clinical referrals sent to both Trina at [facility] and Xavi at [facility].
--- NOTE | 2022-09-14 16:29 | NUR ---
Pain assessment done and patient reports of mild discomfort on RUE. Affected area feels warm to touch, patient states his pain level is 3/10 and warm blanket applied to the area. Spouse at the bedside.
--- NOTE | 2022-09-14 20:30 | NUR ---
Initial shift assessment done- denies pain, has edema to lower extremities L>R, also edema to right arm- up on pillow, Tele on, IV fluids of LR at 75cc/hr, Mathis to DD with clear yellow urine- redness has been marked around left great toe. understands to call for assistance - bed alarm on
--- NOTE | 2022-09-15 02:00 | NUR ---
Did talk with Arielle DORADO about unable to get another IV site started- line department supervisor attempted also-- Arielle will put in an order for PICC line in am-
[2022-09-15 03:16] VITALS: BP 131/61; PULSE 96; TEMP 100.7
--- NOTE | 2022-09-15 06:00 | NUR ---
Arielle DORADO aware of temp 100.7 Tylenol given,, No Iv fludis going due to no IV access- unable to restart- order for PICC line today per imani DORADO. Pt did have 2 loose stools during the night- small amounts.
[2022-09-15 06:45] LABS: BASO % 0.3 % (0.0-2.0); EOS # 0.1 K/mm3 (0.0-0.7); EOS % 1.7 % (0.0-4.0); GRAN % 76.3 % (42.2-75.2); LYMPH # 0.8 K/mm3 (1.2-3.4); LYMPH % 10.3 % (20.0-51.0); MEAN CELL VOLUME 86 fl (80.0-100.0); MEAN CORPUSCULAR HGB CONC 33 g/dl (33.0-37.0); MEAN PLATELET VOLUME 10.6 fl (7.4-10.4); MONO # 0.9 K/mm3 (0.1-0.6); MONO % 10.9 % (1.7-9.3); PLATELET COUNT 209 K/mm3 (130-400); RED BLOOD COUNT 3.31 M/mm3 (4.20-5.60); REDCELL DISTRIBUTION WIDTH-CV 13.5 % (11.5-14.5)
[2022-09-15 06:46] LABS: HEMATOCRIT 28.6 % (42.0-52.0); HEMOGLOBIN 9.4 g/dl (13.5-18.0); MEAN CORPUSCULAR HEMOGLOBIN 28 pg (27-31)
[2022-09-15 06:54] LABS: ALBUMIN 2.4 gm/dL (3.4-4.8); BILIRUBIN,TOTAL 0.7 mg/dL (0.2-1.2); CALCIUM 8.4 mg/dL (8.4-10.2); CREATININE, serum 1.06 mg/dL (0.72-1.25); POTASSIUM 3.8 mmol/L (3.5-4.5); TOTAL PROTEIN 6.2 gm/dL (6.2-8.1)
[2022-09-15 07:32] VITALS: BP 135/58; PULSE 87; TEMP 97.6
--- NOTE | 2022-09-15 08:33 | NUR ---
Pt is laying in bed. Morning medications administered per eMAR. Shift assessment completed. Pt is alert to self, and aware he is at the hospital. Pt is unable to tell date/situation. Pt wheezy, denies SOB, O2 WNL of 95% on RA. Telemetry on with NSR. No IV access & refused PICC placement, hospitalist aware. L greater toe remains red and swollen, denies pain at this time. Mathis catheter remains in place. SCDs on. Pt placed in high-hernandez's for breakfast. Call light within reach. Bed alarm on.
--- NOTE | 2022-09-15 08:43 | NUR ---
PICC order received. Went to patients room to obtain consent. Pt presented with education and information regarding PICC placement and reasoning. Pt refused, he does not want PICC placed. pt verbalized "the docotor can go to hell" When explained that it was what the doctor thought was best for him and his condition. Dr Maxwell updated, pt will be switching to Oral, no PICC line needed at this time.
--- NOTE | 2022-09-15 11:12 | NUR ---
WILL staffed with the paper roller. The hospitalist is thinking possible discharge tomorrow. WILL notified and faxed updates to [facility] and [facility]. Jaz, at [facility], reports that they have clinically accepted the patient, but they are trying to see if they will have a room available. Xavi, at [facility], reports that they can accept the patient. WILL met with the patient and his , Carrie, to update on the above. The patient and Carrie provide that their son actually works maintence at [facility], so they would prefer [facility] now. WILL presented and read the IM form outloud to the patient and his . The patient's verbalized understanding and signed the form. WILL provided her with a copy. WILL updated Xavi at [facility] of changed preference. *Discharge plan: [facility] SNF*
[2022-09-15 11:41] VITALS: BP 129/53; PULSE 81; TEMP 98.6
--- NOTE | 2022-09-15 13:18 | NUR ---
This nurse was notified pts L greater toe is bleeding. Hospitalist notified, verbal order to cover with aquacell dressing at this time.
--- NOTE | 2022-09-15 13:32 | NUR ---
Pt found to be coughing while having lunch. Pt HOB was elevated further at this time. Pt continues to cough and spit-up some food. O2 sats 95% on RA. Pt continues to cough. AVE Johnson notified of incident.
[2022-09-15 15:17] VITALS: BP 133/59; PULSE 90; TEMP 99
--- NOTE | 2022-09-15 15:25 | NUR ---
Telehealth visit conducted with Dr. Alexsander Musa, Infectious Disease. Patient consented to visit. Telecommunication initiated without any difficulties during exam. All questions were answered by Dr. Musa
--- NOTE | 2022-09-15 16:59 | NUR ---
New IV access placed by CRISTY Chapman. IV rocephin infusing in L wrist. Taras wrap in place.
[2022-09-15 19:37] VITALS: BP 141/66; PULSE 94; TEMP 98.2
[2022-09-15 23:50] VITALS: BP 131/73; PULSE 85; TEMP 98.3
--- NOTE | 2022-09-16 03:18 | NUR ---
2004-PT. APPEARS SLIGHTLY CONFUSED AT THIS TIME, WHEN I INTRODUCED MYSELF THE FIRST THING HE SAID WAS THAT I NEEDED TO GO BACK AND SLEEP, PT.'S VISITING WITH HIM AT THE MOMENT, PT. HAS AUDIBLE WHEEZES, ALTHOUGH DOESN'T EXHIBIT ANY SIGNS OF DISTRESS, WILL CONTINUE TO MONITOR.
[2022-09-16 03:30] VITALS: BP 145/80; PULSE 79; TEMP 98
[2022-09-16 06:44] LABS: HEMATOCRIT 30.5 % (42.0-52.0); MEAN CELL VOLUME 86 fl (80.0-100.0); MEAN CORPUSCULAR HEMOGLOBIN 28 pg (27-31); MEAN CORPUSCULAR HGB CONC 33 g/dl (33.0-37.0); MEAN PLATELET VOLUME 10.7 fl (7.4-10.4); PLATELET COUNT 264 K/mm3 (130-400); RED BLOOD COUNT 3.54 M/mm3 (4.20-5.60); REDCELL DISTRIBUTION WIDTH-CV 13.6 % (11.5-14.5)
[2022-09-16 06:58] LABS: CREATININE, serum 1.08 mg/dL (0.72-1.25); POTASSIUM 4.2 mmol/L (3.5-4.5)
[2022-09-16 07:19] VITALS: BP 145/84; PULSE 87; TEMP 98.4
--- NOTE | 2022-09-16 08:00 | NUR ---
PATIENT IS ORIENTED X2 AND MORE PLEASANT AND COMPLIENT THAN PREVIOUS DAY. STILL NOTED OCCATIONAL CONFUSION/FORGETFULNESS. VSS ON TELE. DENIES COMPLAINTS. PATIENT SITTING UP IN BEDSIDE CHAIR. BREAKFAST TRAY ORDERED. AM BS WAS 174, SSI GIVEN PER ORDERS. AM MEDS GIVEN. HEAD TO TOE ASSESSMENT COMPLETE. LEFT WRIST IV TO INT. BOYKIN TO DD. SCD'S CURRENTLY OFF. NO OTHER NEEDS AT THIS TIME. CALL LIGHT IN REACH. CHAIR ALARM ON.
[2022-09-16] MEDS ORDERED: TOPROL XL 50MG50 MG PO (09:05)
[2022-09-16] MEDS ORDERED: NOVOLOG 100U100 U/M1 SQ (09:07)
[2022-09-16] MEDS ORDERED: AMOXICILLIN 8751 TAB PO (11:21)
[2022-09-16 11:52] VITALS: BP 140/77; PULSE 89; TEMP 97.8
--- NOTE | 2022-09-16 12:20 | NUR ---
Patient to discharge to [facility] later today. Clinical updates and discharge orders sent to [place]. Transportation arranged for the patient to be picked up at 1430. Patients RN updated. Phone call made to the patients spouse and provided updates to which she verbalizes her understanding and agreement. Discharge plan: [facility] @1430
--- NOTE | 2022-09-16 12:30 | NUR ---
DC'D BOYKIN PER ORDERS. BOYKIN CATH TIP INTACT AND PATIENT TOLERATED WELL. URINAL AT BEDSIDE. ALSO AT BEDSIDE. PLAN IS FOR PATIENT TO DISCHARGE TO [facility] LATER TODAY, SEE ORDERS.
--- NOTE | 2022-09-16 15:00 | NUR ---
[facility] HERE TO TRANSPORT PATIENT. AT BEDSIDE. PATIENT DISCHARGING VIA WC WITH [facility] STAFF. CALLED REPORT TO RECEIVING NURSE AT [facility]. SENT INFO PACKET WITH [facility] [employer]. DC'D IV SITE AND COVERED SITE WITH DOC. DC'D TELE. PATIENT IS DRESSED, PACKED AND DISCHARGED.
--- NOTE | 2022-09-16 15:53 | NUR ---
Telehealth visit conducted with Dr. Alexsander Musa, Infectious Disease. Patient consented to visit. Patients daughter present. Telecommunication initiated without any difficulties during exam. All questions were answered by Dr. Musa
== END 2022-09-16 15:00 | DRG 871 ==
LOC: COL.ER 22:31 → ICU 09-12 01:03 → SURG 09-14 14:13
PROVIDERS: Emergency Medicine; Internal Medicine; Nurse Practitioner Family; ADMIT Internal Medicine
DX: A40.0 Sepsis due to streptococcus, group A (principal); J96.01 Acute respiratory failure with hypoxia; R65.21 Severe sepsis with septic shock; N17.9 Acute kidney failure, unspecified; L03.116 Cellulitis of left lower limb; E87.20 Acidosis, unspecified; I45.2 Bifascicular block; E78.5 Hyperlipidemia, unspecified; I25.10 Atherosclerotic heart disease of native coronary artery without angina pectoris; K21.9 Gastro-esophageal reflux disease without esophagitis; N40.0 Benign prostatic hyperplasia without lower urinary tract symptoms; G20 Parkinson's disease; D64.9 Anemia, unspecified; I95.9 Hypotension, unspecified; I49.3 Ventricular premature depolarization; Z20.822 Contact with and (suspected) exposure to COVID-19; L03.032 Cellulitis of left toe; G31.84 Mild cognitive impairment of uncertain or unknown etiology; I11.0 Hypertensive heart disease with heart failure; I50.9 Heart failure, unspecified; E11.51 Type 2 diabetes mellitus with diabetic peripheral angiopathy without gangrene; Z86.16 Personal history of COVID-19; Z86.73 Personal history of transient ischemic attack (TIA), and cerebral infarction without residual deficits; Z95.5 Presence of coronary angioplasty implant and graft; Z90.49 Acquired absence of other specified parts of digestive tract; Z79.82 Long term (current) use of aspirin; Z79.84 Long term (current) use of oral hypoglycemic drugs; Z87.891 Personal history of nicotine dependence; Z85.828 Personal history of other malignant neoplasm of skin
CPT/HCPCS: J0692; J0696; J1815; J1940; J3370; J3475; J3480; J7030; J7040; J7050; J7120; J7512

== ENCOUNTER 2022-10-21 15:44 | Inpatient (IN) | payer MEDICARE, OTHER ==
[~2022-10-21] VITALS: Ht 182.9 cm; Wt 96.7 kg
[~2022-10-21 15:44] MED LIST changes: +NOVOLOG 100U100 U/M1 SQ; +TOPROL XL 50MG50 MG PO
[2022-10-21 16:26] LABS: BASO # 0.1 K/mm3 (0.0-0.2); BASO % 0.4 % (0.0-2.0); EOS # 0.1 K/mm3 (0.0-0.7); EOS % 0.4 % (0.0-4.0); GRAN # 11.9 K/mm3 (1.4-6.5); GRAN % 86.1 % (42.2-75.2); HEMOGLOBIN 10.3 g/dl (13.5-18.0); LYMPH # 0.7 K/mm3 (1.2-3.4); MEAN CELL VOLUME 88 fl (80.0-100.0); MEAN CORPUSCULAR HEMOGLOBIN 27 pg (27-31); MEAN CORPUSCULAR HGB CONC 31 g/dl (33.0-37.0); MEAN PLATELET VOLUME 10.4 fl (7.4-10.4); MONO # 1.1 K/mm3 (0.1-0.6); MONO % 7.8 % (1.7-9.3); PLATELET COUNT 206 K/mm3 (130-400); RED BLOOD COUNT 3.77 M/mm3 (4.20-5.60); REDCELL DISTRIBUTION WIDTH-CV 14.8 % (11.5-14.5)
[2022-10-21 16:33] LABS: INR 1.2 (0.8-3.0); PROTHROMBIN TIME 14.3 SECONDS (9.7-12.8)
[2022-10-21 16:36] LABS: PARTIAL THROMBOPLASTIN TIME 32.5 SECONDS (26.0-37.0)
[2022-10-21 16:45] LABS: ALANINE AMINOTRANSFERASE 27 U/L (0-55); ALBUMIN 3.1 gm/dL (3.4-4.8); ALKALINE PHOSPHATASE 84 U/L (40-150); ANION GAP 8 mmol/L (7-16); AST,SGOT 20 U/L (5-34); BILIRUBIN,TOTAL 0.6 mg/dL (0.2-1.2); BLOOD UREA NITROGEN 18 mg/dL (8-26); CALCIUM 8.7 mg/dL (8.4-10.2); CARBON DIOXIDE 22 mmol/L (23-31); CHLORIDE 107 mmol/L (98-107); CREATININE, serum 1.22 mg/dL (0.72-1.25); GLUCOSE 222 mg/dL (70-99); POTASSIUM 4.4 mmol/L (3.5-4.5); SODIUM 137 mmol/L (136-145); TOTAL PROTEIN 7.1 gm/dL (6.2-8.1)
[2022-10-21 16:52] LABS: TROPONIN-I < 0.010 ng/mL (0.00-0.033)
[2022-10-21] MEDS ORDERED: PRINIVIL20 MG PO (18:27)
[2022-10-21] MEDS ORDERED: ENSURE 237 ML237 ML PO (18:27)
[2022-10-21] MEDS ORDERED: BASAGLAR K100 UNIT/1 SQ (18:29)
[2022-10-21] MEDS ORDERED: LANTUS SOLOS100 U/ML SQ (18:29)
[2022-10-21 20:04] VITALS: BP_SYST 152
--- NOTE | 2022-10-21 22:49 | NUR ---
Patient arrived to medical unit from ER around 1999. Alert and oriented. Denies having pain and discomfort. Went over plan for MRI tomorrow, IV fluids and ABX. Voiced understanding. Ortho in to see patient later on, and recommended an amputation of left great toe, and patient is agreeable to this. Ortho stated that he would call and updater her, and to keep patient NPO after midnight for possible surgery tomorrow. Patient is aware. Patient voices no questions, needs, or concerns at this time. In bed with call light within reach. High fall risk precautions in place. Bed alarm on.
[2022-10-21 23:21] VITALS: BP 133/60; PULSE 109; TEMP 98.4
--- NOTE | 2022-10-21 23:43 | NUR ---
Call placed to Madisyn to see if she wanted to order telemetry. New order for telemetry received. Called and notified telemetry of new order.
[2022-10-22] VITALS (19 sets, daily range): BP systolic 121–140; BP diastolic 56–72; PULSE 77–95; TEMP 97.9–99
--- NOTE | 2022-10-22 06:17 | NUR ---
Patient incontinent of bladder. External male catheter applied to assist with incontinence. Continues on IV fluid and ABX per orders. Has been NPO since midnight. Voices no questions, needs, or concerns at this time. In bed with call light within reach. High fall risk precautions in place. Bed alarm on.
[2022-10-22 07:00] LABS: INR 1.5 (0.8-3.0); PROTHROMBIN TIME 17.6 SECONDS (9.7-12.8)
[2022-10-22 07:02] LABS: HEMOGLOBIN A1C 6.7 %
[2022-10-22 07:10] LABS: LACTIC ACID 1.1 mmol/L (0.5-2.0)
[2022-10-22 07:38] LABS: CALCIUM 7.9 mg/dL (8.4-10.2); CHOLESTEROL RISK RATIO 2.4; CREATININE, serum 0.98 mg/dL (0.72-1.25); POTASSIUM 3.8 mmol/L (3.5-4.5)
[2022-10-22 09:34] LABS: BASO % 0.4 % (0.0-2.0); EOS % 0.4 % (0.0-4.0); GRAN # 7.6 K/mm3 (1.4-6.5); GRAN % 81.1 % (42.2-75.2); LYMPH # 0.9 K/mm3 (1.2-3.4); LYMPH % 9.9 % (20.0-51.0); MEAN CELL VOLUME 85 fl (80.0-100.0); MEAN CORPUSCULAR HGB CONC 32 g/dl (33.0-37.0); MEAN PLATELET VOLUME 11.8 fl (7.4-10.4); MONO # 0.7 K/mm3 (0.1-0.6); MONO % 7.7 % (1.7-9.3); PLATELET COUNT 179 K/mm3 (130-400); RED BLOOD COUNT 3.09 M/mm3 (4.20-5.60); REDCELL DISTRIBUTION WIDTH-CV 14.8 % (11.5-14.5)
[2022-10-22 09:35] LABS: HEMATOCRIT 26.3 % (42.0-52.0); HEMOGLOBIN 8.5 g/dl (13.5-18.0); MEAN CORPUSCULAR HEMOGLOBIN 28 pg (27-31)
--- NOTE | 2022-10-22 13:15 | NUR ---
Initial visit: Gasoline Engine Inspector stopped by room on rounds. Pt was resting and content with by his side. Pt has no needs right now. Gasoline Engine Inspector will follow up as needed.
--- NOTE | 2022-10-22 15:04 | NUR ---
photofinishing laboratory worker met with patient and his , Carrie #[phone] to complete intake and discharge assessment. Patient lives with spouse and is currently utilizing [facility] for physical therapy. Patient recently discharged from [facility] from a skilled stay. Patient plans for a toe amputation. Will await therapy recommendations. Patient is open to rehab and/or resuming home health. Patient's primary care provider is Dr Rm and spouse states patient has a living will and a durable power of document review attorney for health care as well as a DNR. Patient has been ambulating at home with a walker. Discharge Plan: Pending therapy recommendations after toe amputation.
--- NOTE | 2022-10-22 15:45 | NUR ---
PT TAKEN DOWN TO PROCEDURE AT THIS TIME.
--- NOTE | 2022-10-22 17:31 | NUR ---
PT RETURNED FROM PROCEDURE AT 1730. PT IS A&O X4. PT STATED NO PAIN AT THIS TIME. PT STATED HE IS HUNGRY, THIS NURSE ASSISTED WITH ORDERING MEAL. DRESSING NOTED TO LEFT FOOT WITH BOOT AND ICE PACK APPLIED. AT THE BEDSIDE.
--- NOTE | 2022-10-22 22:18 | NUR ---
Patient assessed around 2134. Alert and oriented, but forgetful. Denies having pain and discomfort. Dressing to left foot CDI. IV fluids and ABX continue per orders. Voices no questions, needs, or concerns at this time. In bed with call light within reach. Bed alarm on.
[2022-10-23 00:39] VITALS: BP_SYST 127
[2022-10-23 04:35] VITALS: BP 124/62; PULSE 85; TEMP 97.9
[2022-10-23 04:48] VITALS: BP_SYST 124
--- NOTE | 2022-10-23 06:11 | NUR ---
Donavan has denied having pain and discomfort this shift. Continues on IV fluids and ABX per orders. Dressing to left foot CDI. Voices no questions, needs, or concerns at this time. In bed with call light within reach. High fall risk precautions in place.
[2022-10-23 06:33] LABS: BASO % 0.5 % (0.0-2.0); EOS # 0.3 K/mm3 (0.0-0.7); EOS % 4.7 % (0.0-4.0); GRAN # 3.8 K/mm3 (1.4-6.5); GRAN % 68.1 % (42.2-75.2); LYMPH # 0.9 K/mm3 (1.2-3.4); LYMPH % 16.9 % (20.0-51.0); MEAN CELL VOLUME 86 fl (80.0-100.0); MEAN CORPUSCULAR HGB CONC 33 g/dl (33.0-37.0); MEAN PLATELET VOLUME 10.4 fl (7.4-10.4); MONO # 0.5 K/mm3 (0.1-0.6); MONO % 9.4 % (1.7-9.3); PLATELET COUNT 184 K/mm3 (130-400); RED BLOOD COUNT 3.14 M/mm3 (4.20-5.60); REDCELL DISTRIBUTION WIDTH-CV 14.8 % (11.5-14.5)
[2022-10-23 06:35] LABS: HEMATOCRIT 27.1 % (42.0-52.0); HEMOGLOBIN 8.8 g/dl (13.5-18.0); MEAN CORPUSCULAR HEMOGLOBIN 28 pg (27-31)
[2022-10-23 06:48] LABS: CALCIUM 7.9 mg/dL (8.4-10.2); CREATININE, serum 0.94 mg/dL (0.72-1.25); POTASSIUM 3.9 mmol/L (3.5-4.5)
[2022-10-23 07:17] VITALS: BP 164/69; PULSE 92; TEMP 98.4
[2022-10-23 09:01] VITALS: BP_SYST 164
[2022-10-23] MEDS ORDERED: IMDUR 30MG30 MG/TAB PO (09:59)
[2022-10-23 11:07] VITALS: BP 134/66; PULSE 88; TEMP 98.1
--- NOTE | 2022-10-23 11:10 | NUR ---
Renita, [facility] Director, notified WILL that she received a consult on the patient. Renita states that they will have to decline, due to the patient being too functional. PT is recommending home with home health. The clinical team is ready to discharge the patient today. WILL met with the patient and his , Carrie, to review discharge plan. The patient and Carrie confirm plan to return home with home health services from [facility] . WILL notified and faxed updates and orders to Amanda at [facility] . The patient is to discharge back home with his today, 10/23, and resume services from [facility] for PT/OT/SN. No additional needs at this time.
--- NOTE | 2022-10-23 13:18 | NUR ---
ALL DISCHARGE INSTRUCTIONS REVIEWED WITH PT AND , ALL QUESTIONS AND CONCERNS ANSWERED AT THAT TIME. IV SITE WAS DISCONTINUED, CATHETER TIP INTACT. PT WAS ESCORTED OUT BY PCT, ALL PERSONAL BELONGINGS TAKEN WITH PT.
== END 2022-10-23 13:00 | disposition home health service (06) | DRG 854 ==
LOC: COL.ER 15:44 → MEDICAL 17:53
PROVIDERS: Emergency Medicine; ADMIT Internal Medicine
PROC: 0Y6Q0Z0 Detachment at Left 1st Toe, Complete, Open Approach (ICD-10-PCS; principal; 2022-10-21)
DX: A41.9 Sepsis, unspecified organism (principal); M86.8X7 Other osteomyelitis, ankle and foot; I48.91 Unspecified atrial fibrillation; Z79.01 Long term (current) use of anticoagulants; R00.0 Tachycardia, unspecified; Z66 Do not resuscitate; K21.9 Gastro-esophageal reflux disease without esophagitis; I25.10 Atherosclerotic heart disease of native coronary artery without angina pectoris; Z95.5 Presence of coronary angioplasty implant and graft; E78.5 Hyperlipidemia, unspecified; Z86.73 Personal history of transient ischemic attack (TIA), and cerebral infarction without residual deficits; I10 Essential (primary) hypertension; D64.9 Anemia, unspecified; E11.51 Type 2 diabetes mellitus with diabetic peripheral angiopathy without gangrene; Z79.4 Long term (current) use of insulin; N40.0 Benign prostatic hyperplasia without lower urinary tract symptoms; G20 Parkinson's disease
CPT/HCPCS: A9575; C9113; J0690; J1644; J1815; J2405; J2543; J2704; J3010; J3370; J7030; J7040; J7050; J7120

== ENCOUNTER 2023-11-03 11:15 | Outpatient (RCR) | payer MEDICARE, OTHER ==
[~2023-11-03 11:15] MED LIST changes: +BASAGLAR K100 UNIT/1 SQ; +ENSURE 237 ML237 ML PO; +LANTUS SOLOS100 U/ML SQ; +PRINIVIL20 MG PO
== END 2023-11-21 ==
LOC: MKS.ESL.PT
DX: G20.A1 Parkinson's disease without dyskinesia, without mention of fluctuations (principal); I69.352 Hemiplegia and hemiparesis following cerebral infarction affecting left dominant side; Z89.412 Acquired absence of left great toe

== ENCOUNTER → 2023-11-26 | Outpatient (CLI) | payer MEDICARE, OTHER | LOC: COL.RAD 07:22 | DX: I71.40 Abdominal aortic aneurysm, without rupture, unspecified (principal) ==

== ENCOUNTER 2024-03-05 07:17 | Inpatient (IN) | payer MEDICARE, OTHER ==
[2024-03-05] VITALS (8 sets, daily range): BP systolic 120–134; BP diastolic 68–100; PULSE 101–133; TEMP 98.1–99.3
[~2024-03-05] VITALS: Ht 182.9 cm; Wt 103.2 kg
[~2024-03-05 07:17] MED LIST changes: -AMARYL 2MG T2 MG/TAB PO; +AMARYL4 MG PO; +PRINIVIL10 MG PO; -PRINIVIL20 MG PO
[2024-03-05] MEDS ORDERED: Albuterol/Ipratropium 3 MG-0.5 MG/3 ML Neb Soln IH SCH (07:30)
[2024-03-05 07:53] LABS: BASO % 0.6 % (0.0-2.0); EOS # 0.2 K/mm3 (0.0-0.7); EOS % 2.9 % (0.0-4.0); GRAN % 72.8 % (42.2-75.2); HEMATOCRIT 40.9 % (42.0-52.0); HEMOGLOBIN 12.6 g/dl (13.5-18.0); LYMPH # 1.1 K/mm3 (1.2-3.4); LYMPH % 15.8 % (20.0-51.0); MEAN CELL VOLUME 91 fl (80.0-100.0); MEAN CORPUSCULAR HEMOGLOBIN 28 pg (27-31); MEAN CORPUSCULAR HGB CONC 31 g/dl (33.0-37.0); MEAN PLATELET VOLUME 10.5 fl (7.4-10.4); MONO # 0.5 K/mm3 (0.1-0.6); MONO % 7.3 % (1.7-9.3); PLATELET COUNT 211 K/mm3 (130-400); REDCELL DISTRIBUTION WIDTH-CV 14.6 % (11.5-14.5)
[2024-03-05 08:11] LABS: ALBUMIN 3.8 g/dL (3.4-4.8); BILIRUBIN,TOTAL 0.6 mg/dL (0.2-1.2); CALCIUM 9.3 mg/dL (8.4-10.2); CREATININE, serum 1.12 mg/dL (0.72-1.25); POTASSIUM 3.9 mEq/L (3.5-4.5); TOTAL PROTEIN 7.1 g/dl (6.2-8.1)
[2024-03-05 08:18] LABS: TROPONIN-I 0.039 ng/mL (0.00-0.033)
[2024-03-05] MEDS ORDERED: Furosemide 40 MG/4 ML VIAL IV ONE (08:45)
[2024-03-05] MEDS ORDERED: COMTAN 200MG T200 MG PO (10:06)
[2024-03-05] MEDS ORDERED: Ondansetron 4 MG/2 ML VIAL IV PRN (10:30)
[2024-03-05] MEDS ORDERED: Acetaminophen 500 MG TAB PO PRN (10:30)
--- NOTE | 2024-03-05 11:00 | NUR ---
PATIENT ARRIVED AWAKE AND ALERT FROM ER. PATIETN IS AWAKE ALERT AND ORIENTED. CALL LIGHT WITHIN REACH. AT BEDSIDE. PATIENT O2 SATURATION 95% ON ROOM AIR.
--- NOTE | 2024-03-05 11:30 | NUR ---
BOYKIN CATHER PLACED FOR ACCURATE I/O. PATIENT TOLERATED WELL. URINE OUTPUT AFTER BOYKIN PLACEMENT WAS YELLOW AND CLOUDY, PATIENT HAS SIGNIFICANT DRAINAGE AROUND THE URETHRA, IS UNCIRCUMSIZED. DESPITE GREAT EFFORT THIS RN WAS UUNABLE TO FULLY PULL BACK FORESKIN. PATIENT SITTING UP IN BED. CALL LIGHT WITHIN REACHM, HIS AT BEDSIDE. FALL PRECAUTIUONS INPLACE.
[2024-03-05] MEDS ORDERED: Dextrose (Glucose) 15 GM (4 x 3.75 GM) Chewable TABLET PACK PO PRN (15:45)
[2024-03-05] MEDS ORDERED: Dextrose 50% Water 25 GM/50 ML SYRINGE IV PRN (15:45)
[2024-03-05] MEDS ORDERED: Glucagon 1 MG VIAL IM PRN (15:45)
[2024-03-05] MEDS ORDERED: Insulin Lispro (HumaLOG) SQ SCH (17:00)
--- NOTE | 2024-03-05 17:33 | NUR ---
NOTIFIED OF PATIENT NEWLY IN AFIB. PATEINT HR CURRENTLY SUSTAINING IN THE 120S. PER MD GIVE METOPROLOL 5MG IV X1 NOW, AND ORDER STAT EKG.
[2024-03-05] MEDS ORDERED: Metoprolol Tartrate 5 MG/5 ML VIAL IV ONE (17:45)
[2024-03-05] MEDS ORDERED: Metoprolol Tartrate 25 MG TAB PO SCH (18:22)
--- NOTE | 2024-03-05 18:40 | NUR ---
NIGHT HOSPITALIST INFORMED OF PATIENT EKG RESULTS AND PATIENT STATUS. NEW ORDERS PLACED BY HOSPITALIST.
--- NOTE | 2024-03-05 19:00 | NUR ---
THIS RN SPOKE [facility] PROGRAM MANAGER DR VO REGARDING PATIENT STATUS. PER MD COURTNEY TO BE NPO AT MIDNIGHT. CARDIOLOGY WILL SEE PATIENT IN THE AM.
[2024-03-05] MEDS ORDERED: Furosemide 40 MG/4 ML VIAL IV SCH (21:00)
[2024-03-05] MEDS ORDERED: Insulin Glargine-ygfn (Lantus) SQ SCH (21:00)
[2024-03-05] MEDS ORDERED: Atorvastatin 40 MG TAB PO SCH (21:00)
[2024-03-06] VITALS (10 sets, daily range): BP systolic 90–125; BP diastolic 52–82; PULSE 69–103; TEMP 98–98.4
[2024-03-06] MEDS ORDERED: Esomeprazole 20 MG **** subs to Pantoprazole 20 MG PO SCH (07:00)
[2024-03-06] MEDS ORDERED: Isosorbide Mononitrate CR (24-HR) 30 MG TAB PO SCH (07:00)
[2024-03-06 07:12] LABS: CALCIUM 9.2 mg/dL (8.4-10.2); CREATININE, serum 1.24 mg/dL (0.72-1.25); MAGNESIUM 1.8 mg/dL (1.6-2.6); POTASSIUM 3.7 mEq/L (3.5-4.5)
--- NOTE | 2024-03-06 08:00 | NUR ---
PAtient sitting up in the bed, breakfast in front of the patient. Nurse informed the patient that he is NPO pending on cardiology. A&Ox4. VSS. 2L NC O2. Mathis intact. Denies pain and discomfort. Call light within reach. Bed alarm on
[2024-03-06 08:53] LABS: BASO % 0.5 % (0.0-2.0); EOS # 0.1 K/mm3 (0.0-0.7); GRAN % 70.5 % (42.2-75.2); HEMOGLOBIN 11.1 g/dl (13.5-18.0); LYMPH # 0.9 K/mm3 (1.2-3.4); LYMPH % 15.2 % (20.0-51.0); MEAN CELL VOLUME 87 fl (80.0-100.0); MEAN CORPUSCULAR HEMOGLOBIN 28 pg (27-31); MEAN CORPUSCULAR HGB CONC 32 g/dl (33.0-37.0); MEAN PLATELET VOLUME 10.6 fl (7.4-10.4); MONO # 0.6 K/mm3 (0.1-0.6); MONO % 11.4 % (1.7-9.3); PLATELET COUNT 201 K/mm3 (130-400); RED BLOOD COUNT 3.95 M/mm3 (4.20-5.60); REDCELL DISTRIBUTION WIDTH-CV 14.6 % (11.5-14.5)
[2024-03-06] MEDS ORDERED: Clopidogrel 75 MG TAB PO SCH (09:00)
[2024-03-06 09:06] LABS: HEMATOCRIT 34.4 % (42.0-52.0)
--- NOTE | 2024-03-06 09:28 | NUR ---
park worker supervisor met with pt to discuss discharge planning. He reports to live with his , Carrie [phone] in [place]. He sees Dr. Rm for PCP needs and obtains medications from [facility] with no difficulties. He reports to have Medicare A/B and [employer] insurance. Pt reports to need assist getting in/out of the shower, but is independent with other ADLS. He states he uses a wheelchair and FWW for DME. Pt states his is DPOA-HC and she has a copy at home or with her. SW discussed if pt needs oxygen or had a preference on home medical. He had no preference and was agreeable to [facility]. Pt reports he has had Home Health in the past, but could not recall which agency. WILL advised they will revist this once PT/OT assess him. PT/OT pending Discharge Plan: home likely with HH
[2024-03-07] VITALS (10 sets, daily range): BP systolic 90–120; BP diastolic 55–69; PULSE 76–86; TEMP 98–99.1
[2024-03-07 07:24] LABS: BASO % 0.7 % (0.0-2.0); EOS # 0.2 K/mm3 (0.0-0.7); GRAN # 3.9 K/mm3 (1.4-6.5); GRAN % 65.2 % (42.2-75.2); HEMOGLOBIN 11.6 g/dl (13.5-18.0); LYMPH # 1.1 K/mm3 (1.2-3.4); MEAN CELL VOLUME 89 fl (80.0-100.0); MEAN CORPUSCULAR HEMOGLOBIN 28 pg (27-31); MEAN CORPUSCULAR HGB CONC 32 g/dl (33.0-37.0); MEAN PLATELET VOLUME 10.6 fl (7.4-10.4); MONO # 0.7 K/mm3 (0.1-0.6); MONO % 11.4 % (1.7-9.3); PLATELET COUNT 213 K/mm3 (130-400); RED BLOOD COUNT 4.11 M/mm3 (4.20-5.60); REDCELL DISTRIBUTION WIDTH-CV 14.6 % (11.5-14.5)
[2024-03-07 07:29] LABS: HEMATOCRIT 36.7 % (42.0-52.0)
[2024-03-07 07:43] LABS: CREATININE, serum 1.61 mg/dL (0.72-1.25)
[2024-03-07] MEDS ORDERED: Amiodarone 200 MG TAB PO SCH (10:07)
--- NOTE | 2024-03-07 13:17 | NUR ---
D; Lobby Porter stopped by room on rounds. A: Pt was resting and content. Pt worked in [employer] most his life. He is a longtime resident of the area. Pt appreciated the visit. P: Lobby Porter informed pt that if he needed anything from the manager leadership development area to let his nurse know. Lobby Porter will follow up as needed.
--- NOTE | 2024-03-07 16:32 | NUR ---
Clearance Rep met with patient to discuss recommendation for Home Health. Patient advised he has had HH before, he just can't remember the agency. SW provided Medicare.gov list of HH agencies and patient requested time to review this with his . Discharge Plan: Home with HH
--- NOTE | 2024-03-07 20:03 | NUR ---
Bedside report received from RN Amber. Pt awake in bed with no complaints. Call light within reach and fall precautions in place.
--- NOTE | 2024-03-07 21:59 | NUR ---
Pt awake in bed with no complaints. Shift assessment completed. VSS with O2 in place at 1L via NC. Skin intact on bilateral nares and behind ears with no irritation. Mathis catheter in place draining clear yellow urine with no complications. Education provided about NPO status at midnight. Pt verablized understanding. Pt has no request at this time. Call light within reach.
[2024-03-08] VITALS (18 sets, daily range): BP systolic 98–117; BP diastolic 59–75; PULSE 76–98; TEMP 97.8–99.1
[2024-03-08 07:40] LABS: BASO % 0.5 % (0.0-2.0); EOS # 0.2 K/mm3 (0.0-0.7); EOS % 4.1 % (0.0-4.0); GRAN # 3.7 K/mm3 (1.4-6.5); GRAN % 66.1 % (42.2-75.2); HEMOGLOBIN 11.2 g/dl (13.5-18.0); LYMPH % 18.4 % (20.0-51.0); MEAN CELL VOLUME 90 fl (80.0-100.0); MEAN CORPUSCULAR HEMOGLOBIN 28 pg (27-31); MEAN CORPUSCULAR HGB CONC 32 g/dl (33.0-37.0); MEAN PLATELET VOLUME 11.1 fl (7.4-10.4); MONO # 0.6 K/mm3 (0.1-0.6); MONO % 10.5 % (1.7-9.3); PLATELET COUNT 222 K/mm3 (130-400); RED BLOOD COUNT 3.95 M/mm3 (4.20-5.60); REDCELL DISTRIBUTION WIDTH-CV 14.6 % (11.5-14.5)
[2024-03-08 07:49] LABS: HEMATOCRIT 35.6 % (42.0-52.0)
[2024-03-08 07:57] LABS: CALCIUM 8.9 mg/dL (8.4-10.2); CREATININE, serum 1.64 mg/dL (0.72-1.25); POTASSIUM 3.8 mEq/L (3.5-4.5)
[2024-03-08] MEDS ORDERED: Regadenoson 0.08 MG/ML 5 ML SYRINGE IV ONE (08:21)
--- NOTE | 2024-03-08 13:21 | NUR ---
Electric Mule Driver met with patient and his , Carrie to check in on Home Health preferences. Carrie advised they have worked with both [facility] and [facility] in the past and had good experiences with both. Carrie chose [facility] currently so SW contacted [facility] at [facility] and faxed referral. [facility] advised they are able to accept patient for services at time of discharge. Discharge Plan: Home with [facility]
--- NOTE | 2024-03-08 19:52 | NUR ---
Bedside report received from CRISTY Paz. Pt awake in bed watching TV with no complaints. Call light within reach.
[2024-03-09] VITALS (12 sets, daily range): BP systolic 94–117; BP diastolic 56–69; PULSE 73–86; TEMP 98.2–98.7
[2024-03-09 06:05] LABS: BASO % 0.5 % (0.0-2.0); EOS # 0.2 K/mm3 (0.0-0.7); EOS % 2.9 % (0.0-4.0); GRAN # 4.8 K/mm3 (1.4-6.5); GRAN % 77.5 % (42.2-75.2); LYMPH # 0.6 K/mm3 (1.2-3.4); LYMPH % 9.4 % (20.0-51.0); MEAN CELL VOLUME 89 fl (80.0-100.0); MEAN CORPUSCULAR HEMOGLOBIN 28 pg (27-31); MEAN CORPUSCULAR HGB CONC 32 g/dl (33.0-37.0); MONO # 0.6 K/mm3 (0.1-0.6); MONO % 9.4 % (1.7-9.3); PLATELET COUNT 206 K/mm3 (130-400); RED BLOOD COUNT 3.88 M/mm3 (4.20-5.60); REDCELL DISTRIBUTION WIDTH-CV 14.6 % (11.5-14.5)
[2024-03-09 06:08] LABS: HEMATOCRIT 34.6 % (42.0-52.0)
[2024-03-09 06:19] LABS: CALCIUM 8.6 mg/dL (8.4-10.2); CREATININE, serum 1.6 mg/dL (0.72-1.25)
--- NOTE | 2024-03-09 06:31 | NUR ---
Pt had uneventful night this shift. Pt slept through most of the night with no complaints. Shift assessment completed. VSS. Mathis catheter in place. Telemetry in place. Pt denies pain rating 0/10. Pt has no request at this time. Call light within reach.
--- NOTE | 2024-03-09 08:34 | NUR ---
UPON REVIEWING AM EKG, IT IS NOTED TO BE IN AFIB WITH A QTC OF 503. TELE CALLED, PER ALTERATIONS TAILOR PATIENT APPEARS TO BE IN NSR WITH P WAVES EASILY IDENTIFIIABLE. SENIOR RELIABILITY ENGINEER PAGED.
--- NOTE | 2024-03-09 08:38 | NUR ---
PER CARIDOLOGY THIS RN IS CLEARED TO GIVE PATIENTS MEDS, AND HIS RYTHM IS NSR WITH PAC
[2024-03-09] MEDS ORDERED: OXYGEN NASAL.CANN (10:41)
[2024-03-09] MEDS ORDERED: Levalbuterol Neb Soln 1.25 MG/3 ML UD IH PRN (12:45)
--- NOTE | 2024-03-09 16:16 | NUR ---
Belt Molder met with patient to present and review IM form. Patient verbalized understanding and provided signature. SW placed form in chart and provided copy to patient. SW was notified that patient will need home oxygen. WILL faxed referral and order to [facility]. Patient will also need a life vest so SW faxed referral and order to [facility] for review. WILL met with patient and his to provide update. Patient was frustrated he is not leaving today. Discharge Plan; Home with [facility]
--- NOTE | 2024-03-09 18:25 | NUR ---
CALL RECIEVED FROM TELE. PATIENT LEADS FIXED.
--- NOTE | 2024-03-09 19:43 | NUR ---
Bedside report received from CRISTY Paz. Pt awake in bed with no complaints. Call light within reach and fall precautions in place.
[2024-03-09] MEDS ORDERED: Apixaban 2.5 MG TABLET PO SCH (21:00)
--- NOTE | 2024-03-09 22:46 | NUR ---
Pt awake in bed watching TV. Shift assessment completed. VSS. Pt denies pain rating 0/10. INT to Rt AC patent with no swelling, redness, or drainage. Pt has no request at this time. Call light within reach.
[2024-03-10] VITALS (7 sets, daily range): BP systolic 91–117; BP diastolic 54–65; PULSE 74–79; TEMP 98.2–98.4
[2024-03-10 06:41] LABS: BASO % 0.3 % (0.0-2.0); EOS # 0.2 K/mm3 (0.0-0.7); EOS % 2.4 % (0.0-4.0); GRAN # 4.7 K/mm3 (1.4-6.5); GRAN % 76.1 % (42.2-75.2); HEMOGLOBIN 10.3 g/dl (13.5-18.0); LYMPH # 0.5 K/mm3 (1.2-3.4); LYMPH % 8.2 % (20.0-51.0); MEAN CELL VOLUME 90 fl (80.0-100.0); MEAN CORPUSCULAR HEMOGLOBIN 29 pg (27-31); MEAN CORPUSCULAR HGB CONC 32 g/dl (33.0-37.0); MONO # 0.8 K/mm3 (0.1-0.6); MONO % 12.7 % (1.7-9.3); PLATELET COUNT 173 K/mm3 (130-400); RED BLOOD COUNT 3.61 M/mm3 (4.20-5.60); REDCELL DISTRIBUTION WIDTH-CV 14.7 % (11.5-14.5)
[2024-03-10 06:42] LABS: HEMATOCRIT 32.3 % (42.0-52.0)
[2024-03-10 07:07] LABS: CALCIUM 8.7 mg/dL (8.4-10.2); CREATININE, serum 1.43 mg/dL (0.72-1.25); POTASSIUM 4.2 mEq/L (3.5-4.5)
[2024-03-10] MEDS ORDERED: ELIQUIS 2.5 PO (12:47)
[2024-03-10] MEDS ORDERED: PACERONE400 MG PO (13:52)
--- NOTE | 2024-03-10 15:10 | NUR ---
PATIENT IV AND TELE REMOVED.PATIENT AND HIS GIVEN DISCAHRGE INSTRUCTIONS AND EDUCAITON, AND NEW MEDICATIONS REVIEWED. PATIENT ASSISTED TO DRESS BY THIS RN AND HIS . PATIENT TAKEN VIA HIS PERSONAL WHEELCHIAR AND NEW PORTABLE OXYGEN DOWN TO PATIENT ENTRANCE. PATIENT HAS ALL ITEMS FOR HIS LIFEVEST, AND IT IS CURRENTLY ON HIM AND ACTIVE. PATIENT LEFT IN STABLE CONDITOIN WITH HIS .
--- NOTE | 2024-03-10 16:45 | NUR ---
Patient's Life Vest and oxygen supplies were delivered to his room. WILL contacted [facility] at [facility] and faxed discharge orders. Discharge Plan; Home with [facility], new oxygen, and Life Vest
== END 2024-03-10 15:13 | disposition home or self-care (01) | DRG 291 ==
LOC: COL.ER 07:17 → MEDICAL 08:42
PROVIDERS: Personal Emergency Response Attendant; Physician Assistant; ADMIT Internal Medicine
DX: I11.0 Hypertensive heart disease with heart failure (principal); I50.21 Acute systolic (congestive) heart failure; J96.01 Acute respiratory failure with hypoxia; I47.19 Other supraventricular tachycardia; N17.9 Acute kidney failure, unspecified; E87.0 Hyperosmolality and hypernatremia; I48.91 Unspecified atrial fibrillation; E11.9 Type 2 diabetes mellitus without complications; Z79.4 Long term (current) use of insulin; G20.A1 Parkinson's disease without dyskinesia, without mention of fluctuations; N40.0 Benign prostatic hyperplasia without lower urinary tract symptoms; E78.5 Hyperlipidemia, unspecified; Z79.82 Long term (current) use of aspirin; Z79.02 Long term (current) use of antithrombotics/antiplatelets; Z79.84 Long term (current) use of oral hypoglycemic drugs
CPT/HCPCS: A4314; A9500-JZ; J1650; J1815; J1940; J1956; J2785